=== PATIENT | female | born 1945 | race Caucasian/White ===

== ENCOUNTER 2024-02-14 15:30 | Inpatient (IN) | payer OTHER, SELFPAY ==
[2024-02-14] VITALS (27 sets, daily range): BP systolic 104–184; BP diastolic 62–92; BMI 38.0; BMI 38.3
--- NOTE | 2024-02-14 00:28 | ED.GENMED ---
History of Present Illness
General
Chief Complaint: Chest Pain
Source: patient
Exam Limitations: none
Time Seen by Provider: 02/14/24 00:19
History of Present Illness
History of Present Illness:
See MDM
Past History
Past History
ED Past Medical History: CAD, CVA (Only Left thumb residual), HTN, Hypercholesterolemia, NC and Other (Fibroid, Crohn's)
ED Past Surgical History: Cardiac (Stent, Angioplasty)
Social History
Tobacco: Former smoker
Alcohol: None
Personal:
Living: with family
Employment: Employed (Part-time employed)
Family History
Family History: Other (Noncontributory)
Phy Exam
Physical Exam
Physical Exam:
See MDM
Scores
Heart Score for Chest Pain Patients
STEMI patient?: No
History: Moderately Suspicious
ECG: Nonspecific Repolarization
Age: >/= 65 years
Risk Factors: >/= 3 Risk Factors or History of CAD
Troponin: >1 - <3 x Normal Limit
Heart Score for Chest Pain Patients: 7
Heart Score Risk: 72.7 % MACE over next 6 weeks
Course
Orders/Labs/Results
Orders:
Orders
02/14/24 00:19
Electrocardiogram (*1) Urgent
Reason for Study: Chest Pain
02/14/24 00:20
EKG- Treatment ONCE
02/14/24 00:25
Lorazepam [Ativan] 0.5 mg PO NOW STA
CR Chest - 2 Views Urgent
Comment:
Reason For Exam: chest pain
02/14/24 00:48
Complete Blood Count/With Diff Urgent
Comprehensive Metabolic Panel Urgent
Troponin I Urgent
02/14/24 03:30
Troponin I Urgent
Abnormal Lab Results
02/14/24
00:48
Glucose 131 H mg/dl
(70-99)
Calcium 11.0 H mg/dl
(8.4-10.2)
Troponin I 0.036 H* ng/ml
02/14/24 00:48
02/14/24 00:48
Vital Signs
Initial and Last Documented VS:
Initial Vital Signs
Temp Pulse Resp BP Pulse Ox
97.8 F 65 22 173/76 97
02/14/24 00:21 02/14/24 00:21 02/14/24 00:21 02/14/24 00:21 02/14/24 00:21
Last Documented Vital Signs
Temp Pulse Resp BP Pulse Ox
97.8 F 63 23 184/81 97
02/14/24 00:21 02/14/24 01:00 02/14/24 00:30 02/14/24 01:00 02/14/24 00:45
MDM/Problems Addressed
Differential Diagnosis Includes:
HPI and MDM Narrative:
78-year-old female presenting for evaluation of chest pain. Patient was woken up by police to inform her that her son in [place] is . Patient developed chest pain immediately afterwards. EMS arrived and provided aspirin. Patient is visibly
upset on arrival
Given her prior history, will obtain EKG, troponin and chest x-ray. Symptoms are likely not ACS given the sudden onset of symptoms after bad news
Physical exam
General: non-toxic
HEENT: protecting airway
Neck: appears supple
CV: No evidence of cyanosis. Regular rate and rhythm
Resp: No accessory muscle use
Abd: Non-distended
Extremities: No deformities
Neuro: alert
Psych: Normal affect
Skin: Intact
Problems Addressed including Acute and Chronic Conditions affecting care:
1. Chest pain
Acuity: acute
Prognosis: stable
Details: Likely emotional response. However, will obtain EKG and troponin
Updates
Trope is mildly elevated. Patient still has mild intermittent discomfort but is refusing nitroglycerin based on prior adverse reactions. Given her history of coronary artery disease with an elevated troponin, will admit
Differential Diagnosis (but not limited to): ACS, noncardiac chest pain, anxiety
Testing considered: 2 troponin rule out
Drug therapy (if applicable): OTC meds, please see d/c instruction regarding Rx drugs
Amount and/or Complexity of Data Reviewed
Clinical info obtained from: Patient
External data reviewed: N/A
Labs I independently reviewed (but not limited to): Elevated troponin
Radiology: X-ray independently reviewed: Chest x-ray without acute disease
Pulse Ox: not hypoxic
EKG independently reviewed: Sinus rhythm, normal axis, no STEMI
Strip Stamp Straightener: Sinus rhythm
Critical Care: N/A
Risk of Complication:
Social Determinants of health: Good social support
Discussed with other providers: Hospitalist
Escalation of Care includes Admit/Obs: Given history of coronary disease with elevated troponin, will admit
Occasional wrong word or 'sound a like' substitutions may have occurred due to the inherent limitations of voice recognition software. Read the chart carefully and recognize, using context, where substitutions have occurred.
*Critical Care Note
Total Time (30-74mins, 75-104mins- exclusive of procedures): Not Applicable
ED Attending Note
-
Portions of this chart may have been created with voice recognition software.� Occasional wrong word or��sound alike� substitutions may have occurred due to the inherent limitations of voice recognition software.
Discharge Plan
Departure
Patient Disposition: Admit
Date of Disposition: 02/14/24
Time of Disposition: 02:04
Admit to: Telemetry
Presentation/result/management discussed w/ accepting MD/DO: Hospitalist
Discharge Problem:
Chest pain
Prescriptions:
No Action
noyrjgrk-sak-MU-lycopen-lutein [Centrum Silver] 1 EACH tablet
1 ea PO DAILY
metoprolol tartrate 25 MG tablet
25 mg PO BID Qty: 60 0RF
aspirin 81 MG tablet,delayed release (DR/EC)
81 mg PO DAILYPRN PRN (Reason: when pt remembers)
atorvastatin 40 MG tablet
40 mg PO QPM
acetaminophen [Tylenol Extra Strength] 500 MG tablet
1,000 mg PO Q6HPRN PRN (Reason: mild pain)
ranitidine HCl 75 MG tablet
75 mg PO DAILYPRN PRN (Reason: heartburn)
cholecalciferol (vitamin D3) 1,000 UNITS tablet
1,000 units PO DAILYPRN PRN (Reason: when pt remembers)
ustekinumab [Stelara] 90 MG/ML syringe
90 mg SQ Q2M
lisinopril 20 MG tablet
20 mg PO BID Qty: 60 0RF
ascorbic acid (vitamin C) [Vitamin C] 500 MG tablet
1,000 mg PO BID Qty: 56 0RF
Rx Instructions:
Take 1,000 mg twice a day for 14 days
albuterol sulfate 1 PUFF HFA aerosol inhaler
2 puff inhalation R Q4HPRN PRN (Reason: shortness of breath) Qty: 1 0RF
zinc sulfate 220 MG capsule
220 mg PO DAILY Qty: 14 0RF
Rx Instructions:
Take 220 mg daily for 14 days
cholecalciferol (vitamin D3) 1,000 UNITS tablet
2,000 units PO DAILY Qty: 28 0RF
Rx Instructions:
Take 2,000 units daily for 14 days
Referrals:
Corey Atkinson MD [Family Provider] -
Interventions
Interventions:
*Risk Screen - Suicide Last Done: 02/14/24 00:21
*General Assessment Last Done: 02/14/24 00:21
*Neglect/Abuse Screening Last Done: 02/14/24 00:21
ED- Fall Risk Assessment Last Done: 02/14/24 00:45
*ED COVID-19 Vaccine History Last Done: 02/14/24 00:30
ED- Cardiac Assessment Last Done: 02/14/24 00:32
Discharge Date and Time
Print Language: GREEK
[2024-02-14] MEDS: ATIVAN 0.5 MG PO (00:38)
[2024-02-14 00:59] LABS: % Basophils 0.9 % (0-2); % Eosinophils 3.6 % (0-6); % Immature Granulocytes 0.3 % (0-0.5); % Monocytes 8.5 % (1.7-9.3); % Neutrophils 55.7 % (42.2-75.2); Absolute Basophils 0.1 10^3/uL (0-0.2); Absolute Eosinophils 0.3 10^3/uL (0-0.7); Absolute Lymphocytes 2.3 10^3/uL (1.2-3.4); Absolute Monocytes 0.6 10^3/uL (0.1-0.6); Absolute Neutrophils 4.2 10^3/uL (1.4-6.5); Hematocrit 39.4 % (37.0-47.0); Hemoglobin 13.4 g/dL (12.0-16.0); Mean Corpuscular Volume 91.2 fL (81.0-99.0); Mean Platelet Volume 10.1 fL (7.4-10.4); Nucleated Red Blood Cells % 0 %; Platelet Count 272 10^3/uL (130-400); Red Blood Cell Count 4.32 10^6/uL (4.20-5.40); Red Cell Dist. Width 13.4 % (11.5-14.5); White Blood Cell Count 7.6 10^3/uL (4.8-10.8)
[2024-02-14 01:21] LABS: ALT (SGPT) 23 U/L (0-35); AST (SGOT) 23 U/L (14-36); Albumin 4.1 g/dl (3.5-5.0); Alkaline Phosphatase 111 U/L (38-126); Blood Urea Nitrogen 11 mg/dl (7-17); Carbon Dioxide 26 mmol/L (22-30); Chloride 103 mmol/L (98-107); Estimated Creatinine Clearance 76 ml/min; Glucose 131 mg/dl (70-99); Potassium 4.2 mmol/L (3.5-5.1); Sodium 137 mmol/L (135-145); Total Bilirubin 0.9 mg/dl (0.2-1.3); Total Protein 7.1 g/dl (6.3-8.2); eGFR > 60.00
[2024-02-14 01:42] LABS: Troponin I 0.036 ng/ml
--- NOTE | 2024-02-14 02:47 | HPS.HSE ---
Family Physician
-
Family Physician: Corey Atkinson
Chief Complaint
-
chest pain
History of Present Illness
Ms. nAy Narvaez is a 78 yo woman with hx CAD s/p PCI 2002, 2005; hx CVA, Crohn's disease, HLD presents to the ER with chest pain. The chest pain developed when she learned from police that her son had .
Patient describes pain as burning in chest that comes and goes in intensity. Pain started when police came to her house around 11PM. It is not reproducible. When asked if similar to pain she experienced prior to PCI she said 'I've never
experienced pain like this.' Did not say it was exacerbated when she went to get her CXR, otherwise hasn't done much walking since pain started. No nausea/vomiting.
No recent fevers/chills. No abdominal pain. No LE swelling. Pain not associated with shortness of breath.
Patient received aspirin from EMS.
Her oldest son in a car crash in 2019; in 2020. Her youngest son lives next door to her.
Medical History
Past Medical History
Past Medical History: Reports Other (CAD s/p PCI 2002, 2005; hx CVA, Crohn's disease, HLD)
Past Surgical History: Reports Other
Social History
Tobacco: Former Smoker
Family History
Family History: Not pertinent
Allergies / Home Medications
Allergies reflects when Allergies were last updated in [facility].
Home Medications with original date entered in [facility]
Allergy/Medication List:
Allergies
Allergy/AdvReac Type Severity Reaction Status Date / Time
levofloxacin Allergy muscle Verified 10/08/21 10:57
cramps
prednisone Allergy Rash Verified 10/08/21 10:57
shellfish derived Allergy severe Verified 10/08/21 10:57
vomiting
Home Medications
lttndhwn-ufq-loupk acid 0.4 mg-lycopene 300 mcg-lutein 250 mcg tablet (Centrum Silver) 1 ea PO DAILY 09/11/15
metoprolol tartrate 25 mg tablet 25 mg PO BID ##60 06/28/15
aspirin 81 mg tablet,delayed release 81 mg PO DAILYPRN PRN when pt remembers 05/08/17
acetaminophen 500 mg tablet (Tylenol Extra Strength) 1,000 mg PO Q6HPRN PRN mild pain 12/06/18
atorvastatin 40 mg tablet 40 mg PO QPM 12/06/18
ranitidine HCl 75 mg tablet 75 mg PO DAILYPRN PRN heartburn 12/06/18
ustekinumab 90 mg/mL subcutaneous syringe (Stelara) 90 mg SQ Q1M 12/06/18
lisinopril 20 mg tablet 20 mg PO BID ##60 12/10/18
amlodipine 2.5 mg tablet 2.5 mg PO DAILY 02/14/24
Review of Systems
-
History Source: Patient
A 12 point ROS was completed and negative except as noted: Yes
Physical Exam
Vital Signs
Vital Signs
Temp Pulse Resp BP Pulse Ox
97.8 F 65 16 162/92 93
02/14/24 00:21 02/14/24 02:30 02/14/24 02:30 02/14/24 02:11 02/14/24 02:11
Physical Exam
General: No Apparent Distress and Conversant
HEENT: PERRLA
Respiratory: Clear; No Wheezes
Cardiac: S1/S2 and Regular Rhythm
GI: Soft and Non Tender
Musculoskeletal: No Edema
Skin: Warm and Dry; No Rash
Neuro: AO x 3
Psych: Calm
Laboratory Results
-
02/14/24 00:48
02/14/24 00:48
Laboratory Results
Total Bilirubin 0.9 mg/dl (0.2-1.3) 02/14/24 00:48
AST 23 U/L (14-36) 02/14/24 00:48
ALT 23 U/L (0-35) 02/14/24 00:48
Alkaline Phosphatase 111 U/L (38-126) 02/14/24 00:48
Troponin I 0.036 ng/ml H* 02/14/24 00:48
Data Reviewed
-
Diagnostic Radiology: Report Reviewed by me
Lab Data: Labs Reviewed by me
Impression/Plan
-
Ms. Any Narvaez is a 78 yo woman with hx CAD s/p PCI 2002, 2005; hx CVA, Crohn's disease, HLD presents to the ER with chest pain. The chest pain developed when she learned from police that her son had .
Triage VS: T 97.8, P 65, RR 22, BP 173/76, SpO2 97%
LABS: WBC 7.6, Hg 13.4, PLT 272, Na 137, K+ 4.2, Cl 103, CO2 26, BUN 11, Cr 0.7, glucose 131, Ca 11, T. Bili 0.9, AST 23, ALT 23, Trop 0.036
EKG: NSR @ 63, no ST/ T wave changes
Chest pain
Hx CAD, PCI 2002 and 2005
-pain may be related to grief/ Takotsubo? Troponin at this point only mildly elevated. per ER discussion, patient didn't feel comfortable going home with this pain.
-admit to tele, observation
-continue to trend Troponins
-continue RN OTOLARYNGOLOGY asa/atorvastatin/metoprolol/lisinopril
-cardiology consult, stress test?
-NPO until evaluated by cardiology
Mildly elevated Ca
-1L IVF overnight
Hx CVA
-RN OTOLARYNGOLOGY asa, statin
HLD
-RN OTOLARYNGOLOGY statin
HTN
-RN OTOLARYNGOLOGY regimen: metoprolol, lisinopril, amlodipine
Grief
-patient was notified prior to admit that son committed suicide. She appears flat/ numb during my interview. She mentions that later she may feel ready to talk to a grief counselor.
DVT PPx lovenox subQ
FULL CODE
[2024-02-14 04:08] LABS: Troponin I 0.501 ng/ml
[2024-02-14] MEDS: NSS 1000 IV (04:30)
[2024-02-14 08:13] LABS: Hematocrit 39.5 % (37.0-47.0); Hemoglobin 13.2 g/dL (12.0-16.0); Mean Corp Hgb Conc. 33.4 g/dL (33.0-37.0); Mean Corpuscular Hgb 30.8 pg (27.0-31.0); Mean Corpuscular Volume 92.3 fL (81.0-99.0); Mean Platelet Volume 11.1 fL (7.4-10.4); Platelet Count 238 10^3/uL (130-400); Red Blood Cell Count 4.28 10^6/uL (4.20-5.40); Red Cell Dist. Width 13.4 % (11.5-14.5); White Blood Cell Count 7.5 10^3/uL (4.8-10.8)
[2024-02-14] MEDS: ZESTRIL 20 MG PO ×2 (08:40→20:43)
[2024-02-14] MEDS: ASPIR LOW (ENTERIC COATED) 81 MG PO (08:40)
[2024-02-14] MEDS: NORVASC 2.5 MG PO (08:41)
[2024-02-14] MEDS: LOPRESSOR 25 MG PO ×2 (08:41→19:49)
[2024-02-14 08:49] LABS: Troponin I 0.859 ng/ml
[2024-02-14] MEDS: PEPCID 20 MG PO (08:52)
--- NOTE | 2024-02-14 09:17 | CON.CAR ---
Addendum entered and electronically signed by Clementine Watson MD 02/14/24 17:31:
I saw and examined the patient.
The Club Director's note was reviewed and I agree with the note.
Comment: Ms Narvaez is a 78-year-old female with past medical history of hypertension, hyperlipidemia, moderate restrictive lung disease, type 2 diabetes mellitus, diet controlled, history of hepatic steatosis, Crohn's disease, prior stroke in 2002,
former tobacco abuse, coronary artery disease status post RCA PCI in 2002 and PTCA of ostial RPDA in 2005 who presents this admission with acute episode of substernal chest discomfort found to have an NSTEMI. Patient unfortunately recently passed
out that one of her sons who lived in [place] had .
Vital signs and lab work reviewed. Troponins are slowly uptrending at 0.859. ECG with sinus rhythm and nonspecific ST-T wave changes without acute ischemic changes.
On exam patient has a flat affect, in no acute distress, normal S1 and S2, no murmurs, rubs or gallops, lungs are clear to auscultation bilaterally, elevated JVD, abdomen is obese but otherwise soft, nontender nondistended, warm extremities without
significant edema.
Recommendations:
1. Plan for medical management of NSTEMI with daily baby aspirin, high intensity statin, IV heparin drip, beta-more as tolerated.
2. Full echocardiogram to assess biventricular function.
3. Trend troponins and EKGs while monitoring on telemetry.
4. Referral for coronary angiogram to rule out obstructive CAD.
Clementine Watson MD, [facility], [facility]
Original Note:
Consultation
Consultation Request
Date/Time Consultation Performed: 02/14/24
Requesting Provider: Dr. Mcfarland
Performing Provider: Dia Walker PA-C for Dr. Watson
Reason for Consultation: CP
Medical History
-
Chief Complaint: CP
History of Present Illness:
Patient is a 78-year-old female with past medical history of CAD status post RCA PCI in 2002, PTCA of ostial RPDA in 2005, history of stroke, Crohn's disease, hypertension, hyperlipidemia, moderate restrictive lung disease by prior PFT. She
presents to [facility] overnight due to development of chest pain. She states one of her sons in a car accident in 2019, her in 2020. Last evening she was told by police that her son who lives in [place]
had . She lives next door to her 3rd son. Shortly thereafter she developed central chest tightness and pressure with radiation to her jaw and associated nausea. She states in the setting of her prior stenting, she had symptoms of
dyspnea on exertion, not chest pain. She reports no recent limitations in her activity that she noticed. She reports the chest discomfort still comes and goes. She was given something for anxiety in the ER, however this did not help the chest
discomfort. EKG sinus rhythm with nonspecific ST abnormality. Troponin uptrending, 0.859 is most recent. Cardiology consulted for evaluation
PMH:
CAD status post RCA PCI 2002, PTCA of ostial RPDA in 2005
History of stroke in 2002
Crohn's disease
Hypertension
Hyperlipidemia
Moderate restrictive lung disease
Diabetes type 2, diet controlled
History of fatty liver
Former smoker
Past Medical History
Past Medical History: Other (in HPI)
Social History
Tobacco: Former Smoker
Alcohol: None
Personal:
Living: Alone (son next door)
Employment: Retired
Family History
Family History: CAD
Allergies / Home Medications
Allergy/AdvReac Type Severity Reaction Status Date / Time
levofloxacin Allergy muscle Verified 10/08/21 10:57
cramps
prednisone Allergy Rash Verified 10/08/21 10:57
shellfish derived Allergy severe Verified 10/08/21 10:57
vomiting
�Medication �Instructions �Recorded �Confirmed �Type
xoemaekd-fgi-bkvsh acid 0.4 1 ea PO DAILY Supplement 06/26/15 02/14/24 History
mg-lycopene 300 mcg-lutein 250 mcg
tablet (Centrum Silver)
metoprolol tartrate 25 mg tablet 25 mg PO BID ##60 06/28/15 02/14/24 Rx
aspirin 81 mg tablet,delayed 81 mg PO DAILYPRN PRN when pt 05/08/17 02/14/24 History
release remembers
acetaminophen 500 mg tablet 1,000 mg PO Q6HPRN PRN mild pain 12/06/18 02/14/24 History
(Tylenol Extra Strength)
atorvastatin 40 mg tablet 40 mg PO QPM High Cholesterol 12/06/18 02/14/24 History
ranitidine HCl 75 mg tablet 75 mg PO DAILYPRN PRN heartburn 12/06/18 02/14/24 History
ustekinumab 90 mg/mL subcutaneous 90 mg SQ Q1M crohn's disease 12/06/18 02/14/24 History
syringe (Stelara)
lisinopril 20 mg tablet 20 mg PO BID ##60 12/10/18 02/14/24 Rx
amlodipine 2.5 mg tablet 2.5 mg PO DAILY Blood Pressure 02/14/24 02/14/24 History
Review of Systems
-
History Source: Patient
All other systems: Negative unless noted
Physical Exam
Vital Signs
Temp Pulse Resp BP Pulse Ox
97.6 F 65 16 141/68 95
02/14/24 07:00 02/14/24 08:41 02/14/24 07:00 02/14/24 08:41 02/14/24 07:00
Lab Results
02/14/24 07:28
Troponin I 0.859 ng/ml H* D 02/14/24 07:28
Physical Exam
General: No Apparent Distress, Comfortable and Other (flat affect. obese)
HEENT: Normocephalic, Anicteric and Moist Mucous Membranes
Respiratory: Clear and Non Labored Respirations
Cardiac: S1/S2 and Regular Rhythm
GI: Soft, Non Tender, Non Distended and Normal Bowel Sounds
Musculoskeletal: No Clubbing, No Cyanosis and Edema (trace of B/L LE)
Skin: Warm and Dry
Neuro: AO x 3
Impression / Plan
-
Primary Cupola Man: Dr. Rodriguez
Assessment:
Presentation with CP
NSTEMI, peak trop thus far 0.8
CAD status post RCA PCI 2002, PTCA of ostial RPDA in 2005
History of stroke in 2002
Crohn's disease
Hypertension
Hyperlipidemia
Moderate restrictive lung disease
Diabetes type 2, diet controlled
History of fatty liver
Former smoker
ECHO 12/06/2018: EF 50 to 55%, mild concentric LVH, mild AR
Lexiscan nuclear stress test 09/06/2022: Small area of decreased perfusion that is fixed in basal inferolateral, basal inferior, mid inferolateral, mid inferior segments consistent with soft tissue attenuation, EF 63%, no significant change compared
to 2020
Plan:
-Patient presents with development of chest pain in the setting of learning her son had last evening. history of prior RCA PCI and PTCA of RPDA
-she has ruled in for NSTEMI with troponin up to 0.8
-EKG sinus rhythm with nonspecific ST abnormalities
-CXR without acute process noted
-Last echo and stress test with results as above
-Continue outpatient aspirin, statin, amlodipine, Lopressor, lisinopril
-N.p.o. for cardiac catheterization today
-Check echo
-I expressed my condolences for the loss of her son
Data Reviewed
-
EKG: Tracing Personally Visualized and interpreted
Radiology: Report Reviewed by me
Medical Tests (Nuc Med, Echo etc): Report Reviewed by me
Labs: Labs Reviewed by me
Old Records: Reviewed
[2024-02-14 10:01] LABS: Blood Urea Nitrogen 10 mg/dl (7-17); Calcium 10.1 mg/dl (8.4-10.2); Carbon Dioxide 24 mmol/L (22-30); Chloride 106 mmol/L (98-107); Estimated Creatinine Clearance 86 ml/min; Glucose 110 mg/dl (70-99); Magnesium 1.9 mg/dl (1.6-2.3); Potassium 4.6 mmol/L (3.5-5.1); Sodium 137 mmol/L (135-145); eGFR > 60.00
--- NOTE | 2024-02-14 10:30 | PTCARENOTE ---
Patient to lab technician for cardiac catheterization, report given to lab technician RN.
--- NOTE | 2024-02-14 10:45 | CM ---
Attempted to complete initial assessment. Patient in manager labor delivery. Will attempt later. Needs AMBROSE signed.
[2024-02-14 11:19] LABS: ACT-LR - POC 302 Seconds (116-155)
--- NOTE | 2024-02-14 12:55 | ITS.CL.CATH ---
[employer] - Catheterization
Cardiac Catheterization
Procedure Report:
LEFT HEART CATHETERIZATION AND CORONARY INTERVENTION
Date of Procedure: February 14, 2024
Referring: Louie Rodriguez
PROCEDURES:
1. Left heart catheterization, coronary angiogram.
2. Ultrasound-guided access.
3. Left ventriculography.
4. Successful percutaneous coronary artery intervention of a 80% proximal OM1 stenosis with a 2.5 x 15 mm Xience abhi point drug-eluting stent, successfully postdilated using a 2.5 x 12 mm NC trek balloon at 18 milo with an excellent angiographic
result.
INDICATION: Ms Narvaez is a 78-year-old female with past medical history of hypertension, hyperlipidemia, moderate restrictive lung disease, type 2 diabetes mellitus, diet controlled, history of hepatic steatosis, Crohn's disease, prior stroke in
2002, former tobacco abuse, coronary artery disease status post RCA PCI in 2002 and PTCA of ostial RPDA in 2005 who presents this admission with acute episode of substernal chest discomfort found to have an NSTEMI. Patient unfortunately recently
passed out that one of her sons who lived in [place] had . Troponins are slowly uptrending at 0.859. ECG with sinus rhythm and nonspecific ST-T wave changes without acute ischemic changes. She will be referred for a left heart
catheterization to rule out obstructive CAD.
ACCESS: Right radial artery, 6 Hungarian sheath, under ultrasound guidance for
HEMODYNAMICS : (mmHg)
AO (s/d) : 174/84
LV (s/d) : 170/18
LVEDP : 31
CORONARY FINDINGS
DOMINANCE: Right
LEFT MAIN: The left main artery is a large-caliber vessel which gives rise to the left anterior descending artery and the left circumflex artery. There is minimal luminal irregularities.
LEFT ANTERIOR DESCENDING: The left anterior descending artery is a medium to large caliber vessel which gives rise to 2 major diagonal branches. The LAD is mild leak calcified with diffuse mild atherosclerotic plaque. The first diagonal branch has
smooth tubular 40 to 50% stenosis in the proximal portion which appears stable from prior cath in 2002.
CIRCUMFLEX: The left circumflex artery is a small to medium caliber vessel which gives rise to 2 major obtuse marginal branches. OM1 has a focal 80% stenosis in the proximal portion. This was thought to be the culprit of her presenting NSTEMI.
Otherwise there is minimal luminal irregularities.
RIGHT CORONARY ARTERY: The right coronary artery is a large-caliber dominant vessel which gives rise to the right posterior descending artery and the right posterolateral system. Mid RCA stent from before is patent with mild diffuse atherosclerotic
plaque from the proximal to distal RCA. The RPDA is a small caliber vessel with 3 serial 60 to 70% stenosis and JG-3 flow.
VENTRICULOGRAPHY: In the single-plane BOCANEGRA projection, there is hypokinesis noted of the basal inferolateral wall with overall low normal left ventricular ejection fraction. Estimated LVEF is 50 to 55% by visual estimation.
CORONARY INTERVENTION: Decision was made to move forward with intervention of proximal OM1. Additional heparin was given to maintain therapeutic ACT throughout the case. The left coronary artery selectively engaged using a 6 Hungarian EBU 3.5 guide
catheter. A 190 cm 0.014' power turn flex coronary wire was used to navigate across the proximal OM1 stenosis into the distal vessel. The lesion was directly stented using a 2.5 x 15 mm Xience abhi point drug-eluting stent and successfully
postdilated using a 2.5 x 12 mm NC trek at 18 milo with an excellent angiographic result. Patient was loaded with 180 mg of Brilinta at the end of the case. No acute complications.
SEDATION: 58 minutes of procedural sedation was utilized. An independent internist medical doctor md was present to assist with and help manage the patient's level of consciousness and physiologic status.
RADIATION SUMMARY: Fluoro Time (min): 9.5, Dose (mGy): 780.5, DAP (Gy.cm2) : 64.4
Closure Device: Vascular band over right radial artery, 14 cc of air
CONCLUSIONS
1. Successful percutaneous coronary artery intervention of a 80% proximal OM1 stenosis with a 2.5 x 15 mm Xience abhi point drug-eluting stent, successfully postdilated using a 2.5 x 12 mm NC trek balloon at 18 milo with an excellent angiographic
result.
2. The RPDA is a small caliber vessel with 3 serial 60 to 70% stenosis and JG-3 flow.
3. The first diagonal branch has smooth tubular 40 to 50% stenosis in the proximal portion which appears stable from prior cath in 2002.
4. Significantly elevated LVEDP.
5. In the single-plane BOCANEGRA projection, there is hypokinesis noted of the basal inferolateral wall with overall low normal left ventricular ejection fraction. Estimated LVEF is 50 to 55% by visual estimation.
RECOMMENDATIONS
1. In the setting of acute coronary syndrome, uninterrupted dual antiplatelet therapy with daily baby aspirin and 90 mg of Brilinta twice daily along with high intensity statin and beta-more as tolerated. IV diuresis as needed.
2. Full echocardiogram to assess biventricular function and rule out any significant valvular abnormalities.
3. Wean radial band per protocol.
4. Aggressive management of cardiovascular risk factors.
5. Referral for outpatient cardiac rehab.
Copy to: Louie Rodriguez
Clementine Watson MD, FACC, [facility]
--- NOTE | 2024-02-14 13:54 | W.PN.HOSP.TC ---
Today's Communication/Plan
-
Trend troponins
Echocardiogram
Continue current care
Assessment / Plan
Assessment / Plan
Gen-AAOx3, NAD, flat affect
HEENT-NC, AT, anicteric, clear oral mm
Neck-supple
CV-reg, no M, +S1/S2
Lungs-clear B/L
Abd-soft, NT, ND
Ext-no edema
Musculoskeletal-no cyanosis, clubbing
Skin-warm and dry
Neuro-grossly non-focal
Psych-calm, cooperative
NSTEMI -stable after cardiac catheterization and stenting today. Continue aspirin, ticagrelor per cardiology. Diet resumed. Last troponin 0.859, repeat troponin pending.
Echocardiogram pending.
CAD -with prior PCI in 2002, 2005.
History of stroke
Hyperlipidemia -continue atorvastatin.
Essential hypertension -stable. Was on amlodipine, lisinopril, metoprolol prior to admission.
Crohn's disease -stable.
Obesity due to excess calories
Grief -patient currently in state of mental shock, just lost her son to suicide. I offered her counseling and second cutter services. Currently she is declining. Condolences offered.
Full code
Anticipated Discharge: 24 - 48 hours
Subjective/Interval History
-
Date of Service: February 14, 2024
Patient seen and examined. Denies chest pain or shortness of breath currently.
Objective Data
-
Labs:
Laboratory Results
02/14/24 02/14/24
07:28 08:56
WBC 7.5
Hgb 13.2
Hct 39.5
Plt Count 238
Sodium Cancelled 137
Potassium Cancelled 4.6
Chloride Cancelled 106
Carbon Dioxide Cancelled 24
BUN Cancelled 10
Creatinine Cancelled 0.6
Glucose Cancelled 110 H
Calcium Cancelled 10.1
Vital Signs:
Vital Signs
Temp Pulse Resp BP Pulse Ox
97.6 F 55 18 147/91 97
02/14/24 07:00 02/14/24 13:40 02/14/24 13:40 02/14/24 13:40 02/14/24 13:14
Review of Systems
-
History Source: Patient
All other systems: Reviewed and negative
--- NOTE | 2024-02-14 16:30 | CM ---
Chart reviewed. Patient is independent of ADLS, lives alone in a 1 STH, 1 [address], 0 DME. Patient recently lost her son, other son in a car accident 2019, and in 2020. Patient with another son who lives next door. Patient
currently with no discharge needs. Plan is for the patient to return home. CM to follow
--- NOTE | 2024-02-14 16:38 | CM ---
Pricing on Brilinta 90mg BID is covered at the patient's prescription plan $0 copay. I called the patient's [facility] and they do have it in stock.
[2024-02-14] MEDS: LOVENOX 40 MG SC (17:06)
[2024-02-14] MEDS: LIPITOR 40 MG PO (17:07)
[2024-02-14] MEDS: TYLENOL 650 MG PO (19:48)
[2024-02-14] MEDS: BRILINTA 90 MG PO (19:49)
[2024-02-14] MEDS: ZOFRAN 4 MG IV (21:21)
[2024-02-14] MEDS: ROXICODONE 5 MG PO (21:21)
[2024-02-14 21:47] LABS: Magnesium 1.7 mg/dl (1.6-2.3); Potassium 4.2 mmol/L (3.5-5.1)
[2024-02-14] MEDS: TUMS EX (EXTRA STRENGTH) CHEWABLE 2 TABLET PO (21:57)
--- NOTE | 2024-02-14 23:05 | W.PN.UPDATE ---
Update Note
Progress Note Update
-@ approx 9:15 pm pt mentioned 5/10 jaw, neck pain and chest burning, which are similar to her admission symptoms, but not as severe. CP appears better when lying on her L side, worse lying on her back and no relief with sitting up. ECG reviewed:
nsr 62 bpm with non-specific STTW abnorm. ECG prior to cath was with NSSTW abnorm as well. BP 137/71, pOx 92 on 2 L. Pt got Metoprolol, Lisinopril and Lipitor earlier. Cath reviewed - s/p OM1 stent.
-checked trop - trending up 2.34 - will check trop and ECG in am.
-Started 2L O2, gave Roxicodone, and Tums (pt has hx GERD and Chron's)- pt stated feeling better overall. Held off on Morphine since pt was nauseated earlier and required Zofran.
-reviewed with Dr. Rodriguez. Will continue to monitor closely.
--- NOTE | 2024-02-14 23:33 | PTCARENOTE ---
Pt received at start of shift, HR SR/SB 50s-70s. R radial site slight ooze under tegaderm, tegaderm taken off, site cleaned, new sterile gauze and tegaderm placed over site. CDI. Pt denies any SOB, lightheadedness, or dizziness.
Pt c/o pain at 7/10 at L upper chest, sternum, and into L neck/jaw (same pain locations as prior to cath). Pt states it is positional, as it feels worse when lying flat on her back. Tylenol administered, ineffective, pt c/o pain 9/10 when side lying
and '12/10' when lying on back. Pt also reports nausea. EKG completed, CVPA Rebecca notified. Lashay 5mg and Zofran ordered and administered. 2L O2 placed on pt. Pt now states pain is L upper chest to sternum, neck, and R side jaw at 5/10 pain. Pt
reports pain feels like burning+pressure in middle of chest. Tums ordered and administered. Upon reassessment, pt states pain 0/10. Informed to notify RN if any changes, call ley within reach.
[2024-02-15] VITALS (8 sets, daily range): BP systolic 104–139; BP diastolic 45–73; BMI 37.7
[2024-02-15] MEDS: TYLENOL 650 MG PO (03:33)
[2024-02-15 04:03] LABS: Blood Urea Nitrogen 12 mg/dl (7-17); Calcium 10.4 mg/dl (8.4-10.2); Carbon Dioxide 25 mmol/L (22-30); Chloride 103 mmol/L (98-107); Estimated Creatinine Clearance 64 ml/min; Glucose 107 mg/dl (70-99); Potassium 4.4 mmol/L (3.5-5.1); Sodium 136 mmol/L (135-145); eGFR > 60.00
[2024-02-15] MEDS: ROXICODONE 5 MG PO (04:19)
[2024-02-15] MEDS: TUMS EX (EXTRA STRENGTH) CHEWABLE 1 TABLET PO (04:19)
[2024-02-15] MEDS: ZOFRAN 4 MG IV ×2 (04:25→09:13)
[2024-02-15] MEDS: BRILINTA 90 MG PO ×2 (07:19→20:03)
[2024-02-15] MEDS: ASPIR LOW (ENTERIC COATED) 81 MG PO (07:19)
[2024-02-15] MEDS: LOPRESSOR 25 MG PO ×2 (07:30→20:04)
[2024-02-15] MEDS: NORVASC PO (07:31)
[2024-02-15] MEDS: ZESTRIL PO (07:31)
--- NOTE | 2024-02-15 07:56 | W.PN.HOSP.TC ---
Today's Communication/Plan
-
Trend troponins
Psychiatry consult
Assessment / Plan
Assessment / Plan
Gen-AAOx3, NAD, flat affect
HEENT-NC, AT, anicteric, clear oral mm
Neck-supple
CV-reg, no M, +S1/S2
Lungs-clear B/L
Abd-soft, NT, ND
Ext-no edema
Musculoskeletal-no cyanosis, clubbing
Skin-warm and dry
Neuro-grossly non-focal
Psych-calm, cooperative
NSTEMI -stable after cardiac catheterization and OM1 stenting 02/13. Continue aspirin, ticagrelor per cardiology. Diet resumed. Troponins still trending up, 2.97 earlier this morning. Repeat troponin pending.
Echocardiogram shows LVEF 45 to 50% with hypokinesis of the inferior and basal weston.
CAD -with prior PCI in 2002, 2005.
History of stroke
Hyperlipidemia -continue atorvastatin.
Essential hypertension -relative hypotension noted. Was on amlodipine, lisinopril, metoprolol prior to admission. Amlodipine and lisinopril on hold for hypotension.
Crohn's disease -stable.
Obesity due to excess calories
Grief -patient currently in state of mental shock, just lost her son to suicide. Today she agrees with psychiatry consultation. Order placed. She lost her 3 years ago, her other son 4 years ago. She has 1 son left.
Full code
Anticipated Discharge: 24 - 48 hours
Subjective/Interval History
-
Date of Service: February 15, 2024
Patient seen and examined. Seems brighter today and more engaging in conversation. Events overnight noted. Currently denies chest pain. States that the chest pain is worse when she lies on her back but improved when she is on the left side in a
left lateral decubital position. Worse with sitting up. Denies shortness of breath. Pain is sharp in nature but not pleuritic.
Objective Data
-
Labs:
Laboratory Results
02/14/24 02/15/24
21:20 03:20
Sodium 136
Potassium 4.2 4.4
Chloride 103
Carbon Dioxide 25
BUN 12
Creatinine 0.8
Glucose 107 H
Calcium 10.4 H
Vital Signs:
Vital Signs
Temp Pulse Resp BP Pulse Ox
98.0 F 54 16 104/69 94
02/15/24 06:43 02/15/24 07:31 02/15/24 06:43 02/15/24 07:31 02/15/24 06:43
Review of Systems
-
History Source: Patient
All other systems: Reviewed and negative
--- NOTE | 2024-02-15 07:58 | W.PN.CARDCBS ---
Addendum entered and electronically signed by Clementine Watson MD 02/15/24 16:06:
I saw and examined the patient.
The Automotive Refinisher's note was reviewed and I agree with the note.
Comment: Patient reports of ongoing nausea this morning. Initially overnight she complained of some chest discomfort that was resolved with narcotics. Later in the day she told us that she has been having musculoskeletal/arthritic neck pain which
then usually causes a migraine leading to nausea. Patient is an extremely poor historian with her complaints and history reassuring for anyone who goes in to speak to her including nurse versus PA versus physician
In the setting of her symptoms and with troponin slowly rising to 4, ECGs were rechecked which showed sinus rhythm or sinus bradycardia with no acute ischemic changes. A limited echocardiogram was also repeated which appears stable compared to
yesterday with mildly reduced LV systolic function with EF of about 45% with hypokinesis of the basal inferior, inferoseptum and inferolateral weston without significant valvular abnormalities.
On exam patient appears in no acute distress, awake and oriented x 3, regular rate, normal S1 and S2, lungs are clear to auscultation bilaterally, abdomen is obese but otherwise soft, nontender with active bowel sounds and warm extremities. Right
radial access site with dressing in place which is clean, dry and intact without evidence of hematoma or bruit.
Recommendations:
1. Patient presented with an NSTEMI with troponins still slowly uptrending from unclear cause. ECG is without acute ischemic changes. Echocardiogram appears unchanged. I reviewed her heart catheterization from yesterday again with an excellent
result of OM1 PCI and JG-3 flow. For now no plans to relook with an invasive heart catheterization however we will continue to work on uptitrating goal-directed medical therapy including antianginal medications as hemodynamically will allow.
Given mild LV dysfunction, will have case management social worker look into the cost for possible SGLT2 inhibitors prior to discharge. Dual antiplatelet therapy with daily baby aspirin and ticagrelor along with statin and beta-more.
2. Continue to trend troponins and EKGs for now. Continue to monitor closely on telemetry.
3. Consider psychiatry consultation.
4. Given patient is breathing well on room air without respiratory distress, holding off on any further diuretics for now. Continue with daily upright weights and strict ins and outs for now.
5. Eventual referral for outpatient cardiac rehab when stable from a cardiac standpoint for discharge home.
Clementine Watson MD, [facility], [facility]
Original Note:
Today's Communication / Plan
-
s/p OM1 PCI 02/13
trend trops to peak
follow symptoms
vitals stable
check CBC, repeat trop, blood sugar
continue asa, brilinta, statin, BB
holding on further lasix
consider psych consult
Impression / Plan
-
Primary Tour Director: Dr. Rodriguez
Assessment:
Presentation with CP
NSTEMI, peak trop thus far 2.9
CAD status post RCA PCI 2002, PTCA of ostial RPDA in 2005
History of stroke in 2002
Crohn's disease
Hypertension
Hyperlipidemia
Moderate restrictive lung disease
Diabetes type 2, diet controlled
History of fatty liver
Former smoker
ECHO 12/06/2018: EF 50 to 55%, mild concentric LVH, mild AR
Lexiscan nuclear stress test 09/06/2022: Small area of decreased perfusion that is fixed in basal inferolateral, basal inferior, mid inferolateral, mid inferior segments consistent with soft tissue attenuation, EF 63%, no significant change compared
to 2020
ECHO 02/14/24: EF 45 to 50%, basal septum, basal inferoseptum, basal inferior, basal lateral weston are hypokinetic, mild LVH, mild MR, mild AR
Plan:
-Patient presented with development of chest pain in the setting of learning her son had . history of prior RCA PCI and PTCA of RPDA
-s/p cath 02/13 with OM1 PCI. residual mod CAD in RPDA and first diag branch, plan for medical mgmt
-troponin continues to trend up, 2.9 on 02/14 AM. trend to peak
-events overnight noted. she had recurrence of chest discomfort overnight relieved with roxicodone. EKG SB but no acute ST abnormalities noted
-called back in to see patient ~1 hour after initial due to patient reports of fatigue, nausea, lightheadedness. no CP. BP improved by recheck. remains SR/SB on tele. nursing to draw additional trop, CBC, blood sugar. will monitor.
-could consider for repeat limited echo if symptoms persist
-CXR 02/13 without acute process noted
-continue asa, brilinta
-continue statin. CVE pending
-LVEDP by cath was 31. she received dose of IV lasix x1 02/13. would hold off on additional lasix for now in setting of relative hypotension
-continue lopressor. in SR/SB by review of tele. holding lisinopril and norvasc this AM due to hypotension
-echo 02/13 with EF 45-50%. reviewed results with patient today. would consider transitioning lopressor to toprol in setting of mild EF reduction
-one of her 3 sons in 2019, in 2020 of covid. additional son this week. consider psych consult if patient agreeable
-cardiac rehab
-d/w nursing, hospitalist
Progress Note - Tour Director
Subjective
Date of Service: February 15, 2024
reported some chest discomfort overnight relieved by gonsalo. now with complaints of nausea, fatigue, lightheadedness.
Objective
Labs:
02/14/24 07:28
02/15/24 03:20
Labs
Hgb 13.2 g/dL (12.0-16.0) 02/14/24 07:28
Hct 39.5 % (37.0-47.0) 02/14/24 07:28
Plt Count 238 10^3/uL (130-400) 02/14/24 07:28
Sodium 136 mmol/L (135-145) 02/15/24 03:20
Potassium 4.4 mmol/L (3.5-5.1) 02/15/24 03:20
BUN 12 mg/dl (7-17) 02/15/24 03:20
Creatinine 0.8 mg/dL (0.6-1.0) 02/15/24 03:20
Glucose 107 mg/dl (70-99) H 02/15/24 03:20
Troponins
02/14/24 02/14/24 02/14/24
00:48 03:30 07:28
Troponin I 0.036 H* 0.501 H* D 0.859 H* D
02/14/24 02/14/24 02/15/24
14:00 21:20 03:20
Troponin I Cancelled 2.340 H* 2.970 H* D
Vital Signs and I&O:
Vital Signs
Temp Pulse Resp BP Pulse Ox
98.0 F 54 16 104/69 94
02/15/24 06:43 02/15/24 07:31 02/15/24 06:43 02/15/24 07:31 02/15/24 06:43
Vital Signs
Temp Pulse Resp BP Pulse Ox
98.0 F 54 16 104/69 94
02/15/24 06:43 02/15/24 07:31 02/15/24 06:43 02/15/24 07:31 02/15/24 06:43
Physical Exam
Physical Exam
GEN: No distress, awake, alert, oriented x3. flat affect
HEENT: supple, anicteric, mmm, eomi
LUNGS: CTA B/L, no wheezes/rales
CV: Reg, S1/S2, no murmur
ABD: soft, BS+, NT/ND
EXT: No cyanosis, clubbing, edema
NEURO: Gross non-focal
SKIN: Warm, pink, dry. No rash. R wrist site c/d/i.
[2024-02-15 08:59] LABS: Glucose - Point of Care 136 mg/dl (70-99)
[2024-02-15 09:38] LABS: HDL Cholesterol 62 mg/dl; LDL Cholesterol, Calculated 61 mg/dl; Total Cholesterol 158 mg/dl (50-199); Triglyceride 175 mg/dl (10-149); Very Low Density Lipoprotein 35 mg/dl (0-30)
[2024-02-15 10:32] LABS: Hematocrit 38.2 % (37.0-47.0); Hemoglobin 12.6 g/dL (12.0-16.0); Mean Corpuscular Hgb 31.3 pg (27.0-31.0); Mean Platelet Volume 10.5 fL (7.4-10.4); Platelet Count 232 10^3/uL (130-400); Red Blood Cell Count 4.02 10^6/uL (4.20-5.40); Red Cell Dist. Width 13.4 % (11.5-14.5); White Blood Cell Count 6.9 10^3/uL (4.8-10.8)
--- NOTE | 2024-02-15 10:45 | CON.MD ---
Consultation - Medical
-
patient seen chart reviewed. spoke with nursing., the patient is a 78 year old woman who has lost two sons once very recently and right before this admit to suicide. her other son in 2020 and her of over fifty years in 2019. she is
reeling from the losses. she does have another son who lives next door and is very supportive of her but her grief is overwhelming. she was admitted for chest pain and has had a stent placed. she has no prior hx of depression. she has never been rx
for depression or anxiety sleep prior to recent events was adequate as was appetite. she could enjoy some things. energy level not really great in general. she is NOT suicidal. there is nothing to suggest psychosis
past psych hx none
medical hx cad stent placement hx cva w minimal residua htn hld mi fibroids crohn's ecg w bradycardia hx respiratory issues gerd hx sinusitis obesity
fh son suicided
substance abuse denied
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 had three sons one remaining lives nearby few friends. some supportive ext family
mse alert ox3 in distress. c/o nausea speech and thought process nl no psychosis mood is depressed affect appropriate. denies si aver intelligence insight judgment ok
dx bereavement unspecified depression
plan at present would not rx with antidepressants which would not be likely to help with acute grief of this nature. can use ativan or xanax to aid w sleep as needed. will return in the am and offer her the opportunity to express what she is
feeling. consider pastoral care consult. will follow
--- NOTE | 2024-02-15 11:26 | CM ---
Chart reviewed. Patient is independent of ADLS, lives alone in a 1 STH, 1 [address], 0 DME. Plan is for the patient to return home. CM to follow
[2024-02-15] MEDS: BenGay-Like 1 APPLIC TOPICAL ×2 (16:04→22:32)
[2024-02-15] MEDS: LIPITOR 40 MG PO (16:43)
[2024-02-15] MEDS: LOVENOX 40 MG SC (16:43)
[2024-02-15] MEDS: ZESTRIL 20 MG PO (20:03)
--- NOTE | 2024-02-16 01:26 | PTCARENOTE ---
Pt received at start of shift, HR SR/SB. R radial cath site dressing CDI, area soft, non-tender. After educating pt on activity restrictions related to cath and stent, pt states they doubt they will continue to follow them once discharged -
specifically the ones related to R arm. Emphasized importance of continuing to follow restrictions post-discharge. Pt denies any CP, jaw pain, neck pain, nausea, SOB, or lightheadedness/dizziness. Informed to notify RN if any changes, call ley
within reach.
[2024-02-16 03:34] VITALS: BP 109/56
[2024-02-16 03:43] VITALS: BMI 37.7
[2024-02-16] MEDS: BRILINTA 90 MG PO (07:57)
[2024-02-16] MEDS: ASPIR LOW (ENTERIC COATED) 81 MG PO (07:57)
[2024-02-16] MEDS: ZESTRIL 20 MG PO (07:57)
[2024-02-16] MEDS: NORVASC 2.5 MG PO (07:57)
[2024-02-16] MEDS: LOPRESSOR 25 MG PO (07:57)
[2024-02-16 07:58] VITALS: BP 140/76
[2024-02-16] MEDS: BenGay-Like 1 APPLIC TOPICAL (07:58)
--- NOTE | 2024-02-16 09:40 | W.PN.CARDCBS ---
Addendum entered and electronically signed by Clementine Watson MD 02/16/24 13:01:
I saw and examined the patient.
The Rounding Machine Tender's note was reviewed and I agree with the note.
Comment: Patient reports feeling significantly better today. Troponin peaked at 4.9 and downtrending. ECG without any acute ischemic changes. Telemetry has been stable. She denies any recurrent chest discomfort or nausea. She has been
ambulating in her room without any difficulty. No shortness of breath. No issues at the right radial site.
A limited echocardiogram was also repeated which appears stable compared to yesterday with mildly reduced LV systolic function with EF of about 45% with hypokinesis of the basal inferior, inferoseptum and inferolateral weston without significant
valvular abnormalities.
On exam patient appears in no acute distress, awake and oriented x 3, regular rate, normal S1 and S2, lungs are clear to auscultation bilaterally, abdomen is obese but otherwise soft, nontender with active bowel sounds and warm extremities. Right
radial access site with dressing in place which is clean, dry and intact without evidence of hematoma or bruit.
Recommendations:
1. Uninterrupted dual antiplatelet therapy in the setting of ACS with daily baby aspirin and ticagrelor along with statin and beta-more.
2. Goal-directed medical therapy for new ischemic cardiomyopathy. We will change Lopressor to Toprol-XL given new reduction in LVEF and continue lisinopril. We will continue amlodipine as a second antianginal agent.
3. Will look into SGLT2 inhibitor as an outpatient.
4. Okay to travel after 1 week if no issues at the radial access site or any new cardiac symptoms. We will work on setting up cardiology follow-up.
5. Stable for discharge home from a cardiac standpoint. Referral for outpatient cardiac rehab.
Clementine Watson MD, [facility], [facility]
Original Note:
Today's Communication / Plan
-
s/p OM1 PCI
feeling better today
continue asa, brilinta. add PPI
transition lopressor to toprol given EF reduction
continue lisinopril, norvasc, statin
cardiac rehab
ok for DC to home today
to discuss timing of travel to [place] in setting of recent [place]. will arrange OP cardiac follow up
Impression / Plan
-
Primary Sql Ssis Developer: Dr. Rodriguez
Assessment:
Presentation with CP
NSTEMI, peak trop thus far 2.9
CAD status post RCA PCI 2002, PTCA of ostial RPDA in 2005
History of stroke in 2002
Crohn's disease
Hypertension
Hyperlipidemia
Moderate restrictive lung disease
Diabetes type 2, diet controlled
History of fatty liver
Former smoker
FH of CAD
ECHO 12/06/2018: EF 50 to 55%, mild concentric LVH, mild AR
Lexiscan nuclear stress test 09/06/2022: Small area of decreased perfusion that is fixed in basal inferolateral, basal inferior, mid inferolateral, mid inferior segments consistent with soft tissue attenuation, EF 63%, no significant change compared
to 2020
ECHO 02/14/24: EF 45 to 50%, basal septum, basal inferoseptum, basal inferior, basal lateral weston are hypokinetic, mild LVH, mild MR, mild AR
Plan:
-Patient presented with development of chest pain in the setting of learning her son had . history of prior RCA PCI and PTCA of RPDA
-s/p cath 02/13 with OM1 PCI. residual mod CAD in RPDA and first diag branch, plan for medical mgmt. reviewed with patient 02/15
-troponin peaked at 4.9 and down trending
-she is feeling well overnight. no complaints this morning aside from her typical neck pain secondary to OA. she reports she had significant relief yesterday with bengay
-continue asa, brilinta
-she has issues with GERD/acid reflux. will plan to add PPI given DAPT
-continue statin. LDL 61.
-LVEDP by cath was 31. she received dose of IV lasix x1 02/13. would hold off on additional lasix
-BPs improved. remains in SR upon review of tele. will transition from lopressor to toprol in setting of mild EF reduction. continue lisinopril and low dose norvasc
-could consider addition of SGLT2 inhibitor and spironolactone as OP
-one of her 3 sons in 2019, in 2020 of covid. additional son this week. appreciate psych.
-she states she needs to travel to [place] (where her son who lived). will discuss clearance for timing of this with attending and will arrange OP follow up around this
-cardiac rehab
-ok for DC to home today
-d/w nursing
Progress Note - Sql Ssis Developer
Subjective
Date of Service: February 16, 2024
Feeling better today. Denies chest pain or shortness of breath overnight
Objective
Labs:
02/15/24 10:11
02/15/24 03:20
Labs
Hgb 12.6 g/dL (12.0-16.0) 02/15/24 10:11
Hct 38.2 % (37.0-47.0) 02/15/24 10:11
Plt Count 232 10^3/uL (130-400) 02/15/24 10:11
Sodium 136 mmol/L (135-145) 02/15/24 03:20
Potassium 4.4 mmol/L (3.5-5.1) 02/15/24 03:20
BUN 12 mg/dl (7-17) 02/15/24 03:20
Creatinine 0.8 mg/dL (0.6-1.0) 02/15/24 03:20
Glucose 107 mg/dl (70-99) H 02/15/24 03:20
Troponins
02/14/24 02/14/24 02/14/24
00:48 03:30 07:28
Troponin I 0.036 H* 0.501 H* D 0.859 H* D
02/14/24 02/14/24 02/15/24
14:00 21:20 03:20
Troponin I Cancelled 2.340 H* 2.970 H* D
02/15/24 02/15/24 02/15/24
09:05 16:14 21:00
Troponin I 4.930 H* D 3.820 H* Cancelled
02/16/24
03:40
Troponin I 2.350 H*
Vital Signs and I&O:
Vital Signs
Temp Pulse Resp BP Pulse Ox
97.7 F 69 20 140/76 92
02/16/24 08:00 02/16/24 07:57 02/16/24 08:00 02/16/24 07:57 02/16/24 08:00
Vital Signs
Temp Pulse Resp BP Pulse Ox
97.7 F 69 20 140/76 92
02/16/24 08:00 02/16/24 07:57 02/16/24 08:00 02/16/24 07:57 02/16/24 08:00
Intake & Output
02/14/24 02/15/24 02/16/24 02/17/24
07:59 07:59 07:59 07:59
Intake Total 720 / 720
Balance 720 / 720
Physical Exam
Physical Exam
GEN: No distress, awake, alert, oriented x3
HEENT: supple, anicteric, mmm, eomi
LUNGS: CTA B/L, no wheezes/rales
CV: Reg, S1/S2, no murmur
ABD: soft, BS+, NT/ND
EXT: No cyanosis, clubbing, edema
NEURO: Gross non-focal
SKIN: Warm, pink, dry. No rash. R wrist site c/d/i. mild tomas-incisional bruising, soft, NTTP
--- NOTE | 2024-02-16 10:24 | W.PN.HOSP.TC ---
Today's Communication/Plan
-
Discharge
Assessment / Plan
Assessment / Plan
Gen-AAOx3, NAD, flat affect
HEENT-NC, AT, anicteric, clear oral mm
Neck-supple
CV-reg, no M, +S1/S2
Lungs-clear B/L
Abd-soft, NT, ND
Ext-no edema
Musculoskeletal-no cyanosis, clubbing
Skin-warm and dry
Neuro-grossly non-focal
Psych-calm, cooperative
NSTEMI -stable after cardiac catheterization and OM1 stenting 02/13. Continue aspirin, ticagrelor per cardiology. Diet resumed. Troponins finally peaked.
Echocardiogram shows LVEF 45 to 50% with hypokinesis of the inferior and basal weston. No further chest discomfort.
CAD -with prior PCI in 2002, 2005.
History of stroke
Hyperlipidemia -continue atorvastatin.
Essential hypertension -relative hypotension noted. Was on amlodipine, lisinopril, metoprolol prior to admission. Amlodipine and lisinopril on hold for hypotension.
Crohn's disease -stable.
Obesity due to excess calories
Grief -patient currently in state of mental shock, just lost her son to suicide. Today she agrees with psychiatry consultation. Order placed. She lost her 3 years ago, her other son 4 years ago. She has 1 son left.
Full code
Dispo -medically stable for discharge. Cleared by cardiology. Outpatient follow-up.
32 min spent in discharge process.
Anticipated Discharge: Today
Subjective/Interval History
-
Date of Service: February 16, 2024
Patient seen and examined. No further chest pain. No complaints. She is in good spirits today.
Objective Data
-
Vital Signs:
Vital Signs
Temp Pulse Resp BP Pulse Ox
97.7 F 69 20 140/76 92
02/16/24 08:00 02/16/24 07:57 02/16/24 08:00 02/16/24 07:57 02/16/24 08:00
I&O
02/15/24 02/16/24 02/17/24
06:59 06:59 06:59
Intake Total 720 / 720
Balance 720 / 720
Review of Systems
-
History Source: Patient
All other systems: Reviewed and negative
--- NOTE | 2024-02-16 10:29 | W.DS.TRANS ---
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
-
Discharge Instructions:
Sleep Apnea Risk Intermediate
Discharge Diagnosis/Procedures NSTEMI, Angioplasty with stent to obtuse
marginal artery
Diet Low Cholesterol,2 Gram Sodium
Activity No strenuous activity
Additional Activity no heavy lifting greater than 10 pounds for 1
week!
Driving Restrictions No driving for 24 hours
Bathing Restrictions None
Other Services Cardiac Rehab
Instructions:
Stand-Alone Forms: DC Instructions- Cath/EP Lab
Changes to Home Medications: No
Discharge Medications:
DC Medications w/original date entered in [facility]
cloknlvd-jrg-oleok acid 0.4 mg-lycopene 300 mcg-lutein 250 mcg tablet (Centrum Silver) 1 ea PO DAILY Supplement 06/26/15
atorvastatin 40 mg tablet 40 mg PO QPM High Cholesterol 12/06/18
lisinopril 20 mg tablet 20 mg PO BID ##60 12/10/18
amlodipine 2.5 mg tablet 2.5 mg PO DAILY Blood Pressure 02/14/24
aspirin 81 mg tablet,delayed release 81 mg PO DAILY #60 tabs 02/16/24
metoprolol succinate 25 mg tablet,extended release 24 hr 25 mg PO DAILY #30 tabs 02/16/24
pantoprazole 40 mg tablet,delayed release 40 mg PO DAILY #30 tabs 02/16/24
ticagrelor 90 mg tablet (Brilinta) 90 mg PO BID #60 tabs 02/16/24
Home Medication Changes
Pending Results: No
[2024-02-16] MEDS: PROTONIX 40 MG PO (10:43)
[2024-02-16 11:12] VITALS: BP 121/62
--- NOTE | 2024-02-16 11:36 | PTCARENOTE ---
Pt AOx3, no complaints of pain or discomfort. VSS, NSR on monitor. Independent with care. Call ley within reach.
--- NOTE | 2024-02-16 13:42 | W.PN.UPDATE ---
Update Note
Progress Note Update
spoke briefly with patient this afternoon. she happily told me she is leaving. she is feeling better. more hopeful about her life. she says she will seek out support in the from of therapy or psych meds if she feels she needs it. she is eagerly
awaiting the arrvial of her son to take her home
== END 2024-02-16 14:50 | disposition home or self-care (01) | DRG 322 ==
LOC: IVU 15:30
PROVIDERS: Internal Medicine Interventional Cardiology; Nurse Practitioner Adult Health; Physician Assistant; Physician Assistant Medical; ADMITTING PHYSICIAN Student in an Organized Health Care Education/Training Program; ATTENDING PHYSICIAN Hospitalist; CONSULT PHYSICIAN Internal Medicine Cardiovascular Disease; CONSULT PHYSICIAN Psychiatry & Neurology Psychiatry; EMERGENCY PHYSICIAN Student in an Organized Health Care Education/Training Program; FAMILY PHYSICIAN Family Medicine
PROC: 027034Z Dilation of Coronary Artery, One Artery with Drug-eluting Intraluminal Device, Percutaneous Approach (ICD-10-PCS; 2024-02-14)
PROC: B2111ZZ Fluoroscopy of Multiple Coronary Arteries using Low Osmolar Contrast (ICD-10-PCS; 2024-02-14)
PROC: 4A023N7 Measurement of Cardiac Sampling and Pressure, Left Heart, Percutaneous Approach (ICD-10-PCS; 2024-02-14)
PROC: B2151ZZ Fluoroscopy of Left Heart using Low Osmolar Contrast (ICD-10-PCS; 2024-02-14)
DX: I21.4 Non-ST elevation (NSTEMI) myocardial infarction (principal); K50.90 Crohn's disease, unspecified, without complications; I25.10 Atherosclerotic heart disease of native coronary artery without angina pectoris; E78.00 Pure hypercholesterolemia, unspecified; I10 Essential (primary) hypertension; E11.9 Type 2 diabetes mellitus without complications; E66.09 Other obesity due to excess calories; Z68.37 Body mass index [BMI] 37.0-37.9, adult; Z86.73 Personal history of transient ischemic attack (TIA), and cerebral infarction without residual deficits; Z87.891 Personal history of nicotine dependence; Z79.02 Long term (current) use of antithrombotics/antiplatelets
CPT/HCPCS: 93308; 71046; 80048; 80053; 80061; 82962; 83735; 84132; 84484; 85025; 85027; 85347; 93005; 93306; 93321; 93325; 93458; 99285; C1725; C1874; C1887; C1894; C9600; Q9967

== ENCOUNTER 2024-02-24 23:21 | Inpatient (IN) | payer OTHER, SELFPAY ==
[2024-02-24] VITALS (8 sets, daily range): BP systolic 164–189; BP diastolic 75–92; BMI 37.5
--- NOTE | 2024-02-24 19:24 | ED.GENMED ---
History of Present Illness
General
Chief Complaint: Chest Pain
Source: patient and ambulance crew
Exam Limitations: none
Time Seen by Provider: 02/24/24 19:23
Nursing documentation reviewed up to this point in time: agreed with
Travel History
Have you had any contact with someone who has COVID-19?: No
Do you have any symptoms of coronavirus? Fever > 100 degrees, chills, cough, shortness of breath, sore throat, loss of taste or smell, muscle aches, or headache?: No
Symptoms:: chest pain, shortness of breath
History of Present Illness
History of Present Illness:
78 yo female presents to the emergency department complaining of chest pain since noon. She had recent cardiac catheterization on 02/14/2024. EMS gave her aspirin 324 prior to arrival. Her pain is worse at rest, unchanged with activity. It feels
similar to her recent [place].
Past History
Past History
ED Past Medical History: CAD, CVA (Only Left thumb residual), HTN, Hypercholesterolemia, [place] and Other (Fibroid, Crohn's)
ED Past Surgical History: Cardiac (Stent, Angioplasty)
Social History
Tobacco: Former smoker
Alcohol: None
Drug: None
Personal:
Living: with family
Employment: Employed (Part-time employed)
Family History
Family History: Other (Noncontributory)
Review of Systems
Review of Systems
Allergies reviewed?: Yes
All Other Systems: Not applicable
Constitutional: Reports no symptoms
EENT: Reports no symptoms
Respiratory: Reports no symptoms
Cardiac: Reports chest pain
ABD/GI: Reports no symptoms
: Reports no symptoms
Musculoskeletal: Reports no symptoms
Skin: Reports no symptoms
Neurological: Reports no symptoms
Endocrine: Reports no symptoms
Hematologic/Lymphatic: Reports no symptoms
Psychiatric: Reports no symptoms
Phy Exam
Physical Exam
Physical Exam:
Physical Exam
General: no apparent distress, not acutely ill
Neck: supple. no meningeal signs. normal posterior pharynx
Heart: s1/s2 regular rate and rhythm, no murmur. equal radial
pulses.
HEENT: Pupils equal round reactive to light, EOMI
Lungs: no acute respiratory distress. clear bilaterally
Abdomen: normal bowel sounds. not tender. no CVAT
Neuro: alert and oriented. no focal neurological deficits cranial nerves II through XII intact
Skin: no rash
Psychiatric: well kept. interactive and cooperative
Extremities: no edema. no calf tenderness. negative homans. good distal pulses
Scores
Heart Score for Chest Pain Patients
STEMI patient?: No
History: Moderately Suspicious
ECG: Normal
Age: >/= 65 years
Risk Factors: >/= 3 Risk Factors or History of CAD
Troponin: </= Normal Limit
Heart Score for Chest Pain Patients: 5
Heart Score Risk: 20.3% MACE over next 6 weeks
Course
Orders/Labs/Results
Orders:
Orders
02/24/24 19:19
ECG [Electrocardiogram (*1)] Urgent
Reason for Study: Chest Pain
EKG- Treatment ONCE
02/24/24 19:20
Cardiac Monitoring- Treatment ONCE
IV Insert/Care/Rem.- Treatment PRN
CR Chest - 2 Views Urgent
Comment:
Reason For Exam: respiratory distress
O2 Therapy [RESP] Urgent
Titrate/Wean O2 to maintain O2 sat greater than (%): 93
Special Instructions: TO MAINTAIN CONTINUOUS O2 SATS >/= 93%
Pulse Ox/cont/shift [RESP] Urgent
Quantity: 1
Special Instructions: continuous pulse ox
02/24/24 19:41
Complete Blood Count/With Diff Urgent
02/24/24 20:39
NT-proBNP Routine
Troponin I Routine
02/24/24 21:05
Protime/PTT Urgent
02/24/24 21:24
Basic Metabolic Panel Urgent
02/24/24 21:25
Troponin I Urgent
02/24/24 22:00
Flush (0.9% Sodium Chloride) [Flush (Nss)] See Dose Instructions IV PER PROTOCOL
02/24/24 22:32
Morphine Sulfate 2 mg IV NOW STA
Ondansetron Injectable [Zofran] 4 mg IV NOW STA
02/24/24 22:36
Potassium Urgent
02/24/24 22:48
ECG [Electrocardiogram (*1)] Urgent
Reason for Study: Chest Pain
EKG- Treatment ONCE
02/24/24 22:59
Admit/Transfer Patient As Directed
Co-Sign Provider:
Level of Care: Inpatient admission
Assign to:: Telemetry
Physician / Group: Hospitalist
Diagnosis: Chest pain
Reason for Telemetry: Chest Pain syndromes
Date to Stop Telemetry: 02/26/24
Time to Stop Telemetry: 11:00
Reason for Hospitalization: Chest pain
Expected length of stay greater than two midnights?: Yes
ELOS- Estimated Length of Stay in days: 3
I certify the patient meets the requirements for IP care: Yes
02/24/24 23:01
Code Status As Directed
Resuscitation Status: Full Code
02/24/24 23:13
Midline IV As Directed
02/25/24 00:57
Electrocardiogram (*1) Q6H
Reason for Study: Chest Pain
Comment: at admission and Q3H for total of 3, to be done with each troponin
Acetaminophen [Tylenol] 650 mg PO Q4HPRN PRN
Mag Hydrox/Al Hydrox/Simeth [Maalox] 30 ml PO Q4HPRN PRN
Morphine Sulfate 2 mg IV Q4HPRN PRN
02/25/24 00:57
CARDIOLOGY CONSULT Routine
Consulting Provider: Jose Maria Rodriguez
Was physician already notified: No
Reason for consult: Chest pain, recent stent.
Consult Notification Routine
Specialty to Notify: Cardiology
Activity As Directed
Activity Level: With Assistance
INT (Intravenous Needle Therapy) As Directed
Comment: maintain peripheral IV access
Intake/ Output As Directed
Frequency: Per unit guidelines
Pneumatic Compression Sleeves As Directed
Type: Knee high
Vital Signs As Directed
Frequency: q4h
Weight As Directed
Frequency: Daily
O2 Therapy [RESP] Routine
Nasal Cannula Liter Flow: 2 LPM
Titrate/Wean O2 to maintain O2 sat greater than (%): 90
Special Instructions: 2 liters/minute as needed for pulse oximetry less than 90%
Pulse Ox/spot Check [RESP] Routine
Quantity: 1
Special Instructions: on admission and then every shift if on oxygen
DX Deep Vein Thrombosis Video Routine
02/25/24 01:36
Glycohemoglobin (HgbA1c) Routine
Troponin I Q3H
Comment: at admit & Q3H for 3 total including ED draws, obtain ECG with each level
02/25/24 03:57
Troponin I Q3H
Comment: at admit & Q3H for 3 total including ED draws, obtain ECG with each level
02/25/24 Breakfast
Cholesterol Lowering
Cholesterol Lowering: Sodium, 2 Gram
Basic Metabolic Panel IN AM
Complete Blood Count/No Diff IN AM
02/25/24 06:57
Electrocardiogram (*1) Q6H
Reason for Study: Chest Pain
Comment: at admission and Q3H for total of 3, to be done with each troponin
Troponin I Q3H
Comment: at admit & Q3H for 3 total including ED draws, obtain ECG with each level
02/25/24 08:00
Amlodipine [Norvasc] 2.5 mg PO DAILY
Aspirin Low Dose EC [Aspir Low (Enteric Coated)] 81 mg PO DAILY
Lisinopril [Zestril] 20 mg PO BID
Metoprolol Xl [Toprol Xl] 25 mg PO DAILY
Multivitamin [Theragran] 1 tablet PO DAILY
Pantoprazole [Protonix] 40 mg PO DAILY
Ticagrelor [Brilinta] 90 mg PO BID
02/25/24 12:57
Electrocardiogram (*1) Q6H
Reason for Study: Chest Pain
Comment: at admission and Q3H for total of 3, to be done with each troponin
02/25/24 18:00
Atorvastatin [Lipitor] 40 mg PO QPM
02/26/24 11:00
DC Protocol for Telemetry ONCE
Abnormal Lab Results
02/24/24 02/24/24
19:41 21:24
MCH 31.1 H pg
(27.0-31.0)
Sodium 131 L mmol/L
(135-145)
Glucose 122 H mg/dl
(70-99)
Calcium 10.6 H mg/dl
(8.4-10.2)
02/24/24 19:41
02/24/24 22:36
Vital Signs
Initial and Last Documented VS:
Initial Vital Signs
Temp Pulse Resp
98.2 F 77 18
02/24/24 19:14 02/24/24 19:14 02/24/24 19:14
Last Documented Vital Signs
Temp Pulse Resp BP Pulse Ox
97.9 F 63 20 179/91 96
02/25/24 01:20 02/25/24 01:20 02/25/24 01:20 02/25/24 01:20 02/25/24 01:20
MDM/Problems Addressed
Differential Diagnosis Includes:
ACS, CHF
MDM/Problems Addressed:
78-year-old female with chest pain, possibly unstable angina. Patient declining nitroglycerin, and eventually excepting morphine. It helped a little bit. Initial troponin negative. Admit to hospitalist. Discussed with Dr. Aaron.
Chronic conditions affecting care: CAD
Acute Exacerbation and/or Progression of Chronic Illness: CAD
*Radiology
Radiology exam reviewed: preliminary read by ED provider (Chest x-ray no acute findings)
*Pulse Oximetry
Patient hypoxic: no
*EKG
Interpreted by ED Provider?: Yes
EKG Intrepretation Date: 02/24/24
EKG Intrepretation Time: 19:20
Interpretation: abnormal
Comparison EKG: no changes
Heart Rate: 75
Rate: normal
Rhythm: sinus
[place]: normal axis
Interval: normal interval
QRS Pattern: left vent hypertrophy
Ischemia: no ischemia
*Artificial Limb Fitter Interpretation
Rate: normal
Interpretation: normal
Heart Rate: 74
Rhythm: sinus
*Critical Care Note
Total Time (30-74mins, 75-104mins- exclusive of procedures): Not Applicable
Data Reviewed
Review of Other/Old Records Reveals: Operative Reports (Recent cardiac catheterization with stent to OM1)
Source: records
Further Testing Considered But Not Given:
CT chest not indicated
Patient Management
Social determinants of health affecting care: Living situation
Discussion with other providers: Hospitalist and Rigging Up Man (Cardiology Dr. Aaron)
Escalation/DeEscalation of care consider admission/obs:
Admit indicated
ED Attending Note
-
Portions of this chart may have been created with voice recognition software.� Occasional wrong word or��sound alike� substitutions may have occurred due to the inherent limitations of voice recognition software.
Discharge Plan
Departure
Patient Disposition: Admit
Date of Disposition: 02/24/24
Time of Disposition: 21:30
Admit to: IVU
Presentation/result/management discussed w/ accepting MD/DO: Hospitalist
Patient with high blood pressure during this ER visit?: Yes
Condition: Good
Discharge Problem:
Chest pain
Interventions
Interventions:
*Risk Screen - Suicide Last Done: 02/24/24 19:14
*General Assessment Last Done: 02/24/24 19:14
*Neglect/Abuse Screening Last Done: 02/24/24 19:14
ED- Fall Risk Assessment Last Done: 02/24/24 19:14
*ED COVID-19 Vaccine History Last Done: 02/24/24 19:14
*Nursing Disposition Last Done: 02/25/24 00:48
ED- Cardiac Assessment Last Done: 02/24/24 19:50
Discharge Date and Time
Discharge Date/Time: 02/25/24 00:48
[2024-02-24 20:09] LABS: % Eosinophils 3.5 % (0-6); % Immature Granulocytes 0.2 % (0-0.5); % Lymphocytes 29.3 % (20.5-51.1); Absolute Basophils 0.1 10^3/uL (0-0.2); Absolute Eosinophils 0.2 10^3/uL (0-0.7); Absolute Lymphocytes 1.8 10^3/uL (1.2-3.4); Absolute Monocytes 0.4 10^3/uL (0.1-0.6); Absolute Neutrophils 3.5 10^3/uL (1.4-6.5); Hematocrit 38.1 % (37.0-47.0); Hemoglobin 13.3 g/dL (12.0-16.0); Mean Corp Hgb Conc. 34.9 g/dL (33.0-37.0); Mean Corpuscular Hgb 31.1 pg (27.0-31.0); Mean Corpuscular Volume 89.2 fL (81.0-99.0); Mean Platelet Volume 10.4 fL (7.4-10.4); Nucleated Red Blood Cells % 0 %; Platelet Count 301 10^3/uL (130-400); Red Blood Cell Count 4.27 10^6/uL (4.20-5.40); Red Cell Dist. Width 13.8 % (11.5-14.5)
[2024-02-24 21:13] LABS: NT-proBNP 367 pg/ml; Troponin I < 0.012 ng/ml
[2024-02-24 21:22] LABS: PT 11.9 Sec (11.4-14.6)
[2024-02-24 21:23] LABS: APTT 29.8 Sec (23.4-35.0)
--- NOTE | 2024-02-24 21:31 | EDRN ---
Addendum entered by Dai Lamar RN 02/24/24 21:35:
During each blood draw, chemistry was sent. Chemistry has hemolyzed twice, third specimen sent.
Original Note:
Pt. difficult IV stick. IV team initially paged to bedside, able to place 24 G in lt. hand;however, no blood return. Flushes without difficulty. This RN had initially placed 20g in rt. arm via ultrasound, initially gave back great blood return and
flushed without pain; however, after return from xray, IV no longer flushes, pt. w/ hematoma to site, ice pack applied and IV removed. RN attempted ultrasound guided in lt. upper arm, able to draw blood from IV, but again, could not flush. aware.
Pt. does have [address] in lt. hand.
--- NOTE | 2024-02-24 21:34 | EDRN ---
Pt. continues -07/[address] Cummins at bedside, offered pt. morphine for pain but pt. refusing, pt. states, 'I don't want anything for pain, I want to feel it so I know what's going on'.
[2024-02-24 22:02] LABS: Blood Urea Nitrogen 8 mg/dl (7-17); Calcium 10.6 mg/dl (8.4-10.2); Carbon Dioxide 22 mmol/L (22-30); Chloride 105 mmol/L (98-107); Estimated Creatinine Clearance 75 ml/min; Glucose 122 mg/dl (70-99); Sodium 131 mmol/L (135-145); eGFR > 60.00
[2024-02-24 22:09] LABS: Troponin I 0.016 ng/ml
--- NOTE | 2024-02-24 22:20 | EDRN ---
Third SST lab hemolyzed. Phlebotomy paged for potassium level as lab was able to run BMP, but not CMP.
[2024-02-24] MEDS: ZOFRAN 4 MG IV (22:40)
[2024-02-24] MEDS: MORPHINE SULFATE 2 MG IV (22:40)
--- NOTE | 2024-02-24 22:43 | HPS.HSE ---
Family Physician
-
Family Physician: Corey Atkinson
Chief Complaint
-
Chest pain
History of Present Illness
78 yo woman comes to the emergency department complaining of chest pain since noon. She had recent cardiac catheterization on 02/14/2024. EMS gave her aspirin 324 prior to arrival. Her pain is worse at rest, unchanged with activity. It feels
similar to her recent [place]. She initially refused nitroglycerin and morphine despite having ongoing chest pain. Her BP was elevated. This is the summary of her recent visit to :
'PROCEDURES: Cardiac catheterization.
DISCHARGE DIAGNOSES:
1. Non ST elevation myocardial infarction.
2. Coronary artery disease.
3. Hyperlipidemia.
4. History of stroke.
5. Essential hypertension.
HOSPITAL COURSE: The patient is a 78-year-old female who presented
to the emergency room with chest pain after she was informed that
her son just committed suicide and . She was admitted for
further evaluation.
She was diagnosed with a non ST elevation myocardial infarction.
She underwent cardiac catheterization on February 13 with successful
stenting of the proximal OM1 stenosis. Post procedure, she had mild
chest discomfort that was managed medically. Echocardiogram
demonstrated LVEF 45-50% with hypokinesis of the inferior septum,
basal inferior and basal inferior lateral weston. Mild MR and mild
AR were noted.
Cardiology recommended medical management with uninterrupted
dual-antiplatelet therapy as well as beta blockade and statin
therapy. She was otherwise stable for discharge home with
outpatient follow up recommended. Psychiatry did assess the patient
given her grief and loss, and recommend outpatient therapy.'
Medical History
Past Medical History
Past Medical History: Reports Other
Additional Past Medical History:
CAD,
CVA (Only Left thumb residual deficit),
essential HTN,
Hypercholesterolemia,
NSTEMI
Fibroid,
Crohn's
recent Stent,
recent Angioplasty
Past Surgical History: Reports Other
Additional Past Surgical History:
See above
Social History
Tobacco: Non-smoker
Alcohol: None
Family History
Family History: Not pertinent
Allergies / Home Medications
Allergies reflects when Allergies were last updated in [facility].
Home Medications with original date entered in [facility]
Allergy/Medication List:
Allergies
Allergy/AdvReac Type Severity Reaction Status Date / Time
levofloxacin Allergy muscle Verified 02/24/24 19:14
cramps
prednisone Allergy Rash Verified 02/24/24 19:14
shellfish derived Allergy severe Verified 02/24/24 19:14
vomiting
Home Medications
pmllyfbd-vdx-wquuw acid 0.4 mg-lycopene 300 mcg-lutein 250 mcg tablet (Centrum Silver) 1 ea PO DAILY Supplement 06/26/15
atorvastatin 40 mg tablet 40 mg PO QPM High Cholesterol 12/06/18
lisinopril 20 mg tablet 20 mg PO BID ##60 12/10/18
amlodipine 2.5 mg tablet 2.5 mg PO DAILY Blood Pressure 02/14/24
aspirin 81 mg tablet,delayed release 81 mg PO DAILY #60 tabs 02/16/24
metoprolol succinate 25 mg tablet,extended release 24 hr 25 mg PO DAILY #30 tabs 02/16/24
pantoprazole 40 mg tablet,delayed release 40 mg PO DAILY #30 tabs 02/16/24
ticagrelor 90 mg tablet (Brilinta) 90 mg PO BID #60 tabs 02/16/24
Review of Systems
-
History Source: Patient
A 12 point ROS was completed and negative except as noted: Yes
Cardiac: Reports Chest Pain
Physical Exam
Vital Signs
Vital Signs
Temp Pulse Resp BP Pulse Ox
98.2 F 67 15 167/75 96
02/24/24 19:14 02/24/24 22:30 02/24/24 22:30 02/24/24 22:00 02/24/24 22:30
Physical Exam
General: Well Developed, Well Nourished, Appears in Distress and Obese
HEENT: NormoCephalic, Nose Appears Normal and Ears Appear Normal
Respiratory: Clear
Cardiac: S1/S2 and Regular Rhythm
GI: Soft, Non Tender and Non Distended
Musculoskeletal: No Clubbing, No Cyanosis and No Edema
Skin: Warm and Dry; No Rash or Jaundice
Neuro: Awake, Alert, Oriented and AO x 3
Psych: Anxious
Laboratory Results
-
02/24/24 19:41
Laboratory Results
PT 11.9 Sec (11.4-14.6) 02/24/24 21:05
INR 0.90 02/24/24 21:05
APTT 29.8 Sec (23.4-35.0) 02/24/24 21:05
Total Bilirubin Cancelled 02/24/24 21:24
AST Cancelled 02/24/24 21:24
ALT Cancelled 02/24/24 21:24
Alkaline Phosphatase Cancelled 02/24/24 21:24
Troponin I 0.016 ng/ml D 02/24/24 21:25
Data Reviewed
-
Lab Data: Labs Reviewed by me
Impression/Plan
-
IMPRESSION:
78 woman with chest pain. Recent stent. ECG normal.
PLAN:
1. Chest pain. Concerning for cardiac cause given recent [place] and stent. Cardiology note from last admit states:
'Patient presented with an NSTEMI with troponins still slowly uptrending from unclear cause. ECG is without acute ischemic changes. Echocardiogram appears unchanged. I reviewed her heart catheterization from yesterday again with an excellent
result of OM1 PCI and JG-3 flow. For now no plans to relook with an invasive heart catheterization however we will continue to work on uptitrating goal-directed medical therapy including antianginal medications as hemodynamically will allow.
Given mild LV dysfunction, will have telephonic nurse case manager look into the cost for possible SGLT2 inhibitors prior to discharge. Dual antiplatelet therapy with daily baby aspirin and ticagrelor along with statin and beta-more.'
Will continue current prescribed meds
Telemetry
Repeat troponins
Cardiology consult for am
2. HTN - BPs elevated in setting of pain. Patient agreed to nitro and morphine.
Use as needed for pain, and keep close eye on BP. BP should go down if pain is reduced.
Full code
VCD for DVTp
[2024-02-24 22:50] LABS: Potassium 4.4 mmol/L (3.5-5.1)
[2024-02-25] VITALS (10 sets, daily range): BP systolic 129–179; BP diastolic 55–91; BMI 37.5; BMI 36.6; BMI 36.1
[2024-02-25 02:17] LABS: Troponin I 0.017 ng/ml
--- NOTE | 2024-02-25 03:41 | PTCARENOTE ---
Pt arrived onto floor @0120. Pt AAOx3 and able to walk into room with minimal assistance. Pt has elevated BP, which is likely related to pain. Pt states that she does not need any pain medictaion at this time. Pt oriented to room and call jil,
will continue to monitor.
[2024-02-25 05:09] LABS: Hematocrit 35.8 % (37.0-47.0); Hemoglobin 12.2 g/dL (12.0-16.0); Mean Corp Hgb Conc. 34.1 g/dL (33.0-37.0); Mean Corpuscular Hgb 31.1 pg (27.0-31.0); Mean Corpuscular Volume 91.3 fL (81.0-99.0); Mean Platelet Volume 10.6 fL (7.4-10.4); Platelet Count 263 10^3/uL (130-400); Red Blood Cell Count 3.92 10^6/uL (4.20-5.40); Red Cell Dist. Width 13.8 % (11.5-14.5); White Blood Cell Count 6.5 10^3/uL (4.8-10.8)
[2024-02-25 05:33] LABS: Blood Urea Nitrogen 6 mg/dl (7-17); Calcium 10.3 mg/dl (8.4-10.2); Carbon Dioxide 24 mmol/L (22-30); Chloride 108 mmol/L (98-107); Estimated Creatinine Clearance 74 ml/min; Glucose 101 mg/dl (70-99); Potassium 4.4 mmol/L (3.5-5.1); Sodium 135 mmol/L (135-145); eGFR > 60.00
[2024-02-25 05:44] LABS: Troponin I 0.014 ng/ml
[2024-02-25] MEDS: PROTONIX 40 MG PO (08:56)
[2024-02-25] MEDS: ZESTRIL 20 MG PO ×2 (08:56→20:00)
[2024-02-25] MEDS: TOPROL XL 25 MG PO (08:57)
[2024-02-25] MEDS: NORVASC 2.5 MG PO (08:57)
[2024-02-25] MEDS: ASPIR LOW (ENTERIC COATED) 81 MG PO (08:58)
[2024-02-25] MEDS: THERAGRAN 1 TABLET PO (08:58)
[2024-02-25] MEDS: BRILINTA 90 MG PO ×2 (08:58→20:00)
--- NOTE | 2024-02-25 09:26 | W.PN.HOSP.TC ---
Today's Communication/Plan
-
await cards c/s
Assessment / Plan
Assessment / Plan
HPI: 78 yo woman comes to the emergency department complaining of chest pain since noon. She had recent cardiac catheterization on 02/14/2024. EMS gave her aspirin 324 prior to arrival. Her pain is worse at rest, unchanged with activity. It feels
similar to her recent CT. She initially refused nitroglycerin and morphine despite having ongoing chest pain. Her BP was elevated.
#Chest pain
#Coronary artery disease
#Recent non-ST elevation myocardial infarction status post stent placement 02/14/2024
Troponins flat, cardiology consult pending
Continue aspirin, Brilinta, statin
#Benign essential hypertension
Continue lisinopril 20 mg twice a day, metoprolol succinate 25 mg daily, amlodipine 2.5 mg daily
#GERD
Continue PPI
#Hyperlipidemia
Continue statin
#Stroke
Continue aspirin, statin
#Morbid obesity due to excess calories
Proximal aspect
DVT prophylaxis�subcu Lovenox
Full code
Total time spent to see the patient on the floor, examine the patient, review data and lab results, discuss treatment plan with patient, nursing staff around 35 minutes.
Physical Exam
General: Obese, no acute distress
HEENT: Normocephalic, Atraumatic, EOMI, MMM
Respiratory: Clear to Auscultation bilaterally
Cardiac: Normal S1/S2, Regular Rate and Rhythm
Chest wall: Nontender to palpation
GI: Soft, Nontender, Nondistended, Normal Bowel Sounds
Extremities: No Clubbing, Cyanosis, or Edema
Neuro: Nonfocal/Grossly Intact
Psych: Calm, Cooperative
Derm: No Visible lesions
Anticipated Discharge: 24 - 48 hours
Subjective/Interval History
-
Date of Service: February 25, 2024
Patient reports chest pressure, substernal, 7 out of 10 in intensity, radiating to both the left and the right side.
Objective Data
-
Labs:
Laboratory Results
02/24/24 02/24/24 02/24/24
21:05 21:24 22:36
WBC
Hgb
Hct
Plt Count
PT 11.9
INR 0.90
APTT 29.8
Sodium 131 L
Potassium 4.4
Chloride 105
Carbon Dioxide 22
BUN 8
Creatinine 0.7
Glucose 122 H
Calcium 10.6 H
Total Bilirubin Cancelled
AST Cancelled
ALT Cancelled
Alkaline Phosphatase Cancelled
02/25/24
04:44
WBC 6.5
Hgb 12.2
Hct 35.8 L
Plt Count 263
PT
INR
APTT
Sodium 135
Potassium 4.4
Chloride 108 H
Carbon Dioxide 24
BUN 6 L
Creatinine 0.7
Glucose 101 H
Calcium 10.3 H
Total Bilirubin
AST
ALT
Alkaline Phosphatase
Vital Signs:
Vital Signs
Temp Pulse Resp BP Pulse Ox
97.6 F 78 18 133/76 98
02/25/24 03:10 02/25/24 08:56 02/25/24 03:10 02/25/24 08:56 02/25/24 03:10
[2024-02-25 11:17] LABS: Glycohemoglobin (HgbA1c) 6.3 % (4.0-5.6)
--- NOTE | 2024-02-25 17:16 | CON.CAR ---
Consultation
Consultation Request
Date/Time Consultation Requested: 02/24/2024 2130
Date/Time Consultation Performed: 02/25/2024 1100
Requesting Provider: Solo Cummins DO
Performing Provider: Corey Pantoja Do
Reason for Consultation: Chest pain
Medical History
-
Chief Complaint: Chest pain
History of Present Illness:
Patient is a pleasant 78-year-old female with a past medical history significant for hypertension, hyperlipidemia, moderate restrictive lung disease, diabetes mellitus type 2, fatty liver disease, former smoker, family history of CAD, CVA 2002, CAD
status post PCI 2002, 2005, 02/14/2024 who presents to the emergency department due to recurrent chest pain. Patient reported on and off chest discomfort over the last week since discharge. She notes when she is active she experiences some
lightheaded and dizziness and when she stops being active, she experiences a tightness in her chest similar to the tightness that brought her to the hospital. Due to this discomfort not improving, she proceeded emergency department for further
evaluation. Troponins negative x 4. EKG sinus rhythm without ST-T abnormality. Chest x-ray negative for acute cardiopulmonary process.In discussion with patient, she has reported that her blood pressure has been elevated which may have
contributed to her symptoms. Initially the emergency department, she was offered nitroglycerin morphine, and refused them due to concern for hypotension however patient received these with some change in her discomfort. Since her blood pressure
has improved, she is noted improvement in discomfort. Currently, patient denies any chest pain, shortness of breath, lightheadedness, dizziness, near-syncope, syncope, PND orthopnea, edema, or weakness. Of note, patient has not started cardiac
rehab therapy at this time. Patient wishes to initiate this following return from her family members graduation in March. Patient reports adherence to medications.
Past Medical History
Past Medical History: None (Per HPI)
Past Surgical History: Other (Per HPI)
Social History
Tobacco: Former Smoker
Alcohol: None
Drug: None
Living: Alone
Employment: Retired
Family History
Family History: CAD
Allergies / Home Medications
Allergy/AdvReac Type Severity Reaction Status Date / Time
levofloxacin Allergy muscle Verified 02/24/24 19:14
cramps
prednisone Allergy Rash Verified 02/24/24 19:14
shellfish derived Allergy severe Verified 02/24/24 19:14
vomiting
�Medication �Instructions �Recorded �Confirmed �Type
ldxsdcjr-xvb-vkqoh acid 0.4 1 ea PO DAILY Supplement 06/26/15 02/25/24 History
mg-lycopene 300 mcg-lutein 250 mcg
tablet (Centrum Silver)
atorvastatin 40 mg tablet 40 mg PO QPM High Cholesterol 12/06/18 02/25/24 History
lisinopril 20 mg tablet 20 mg PO BID ##60 12/10/18 02/25/24 Rx
amlodipine 2.5 mg tablet 2.5 mg PO DAILY Blood Pressure 02/14/24 02/25/24 History
aspirin 81 mg tablet,delayed 81 mg PO DAILY #60 tabs 02/16/24 02/25/24 Rx
release
metoprolol succinate 25 mg 25 mg PO DAILY #30 tabs 02/16/24 02/25/24 Rx
tablet,extended release 24 hr
pantoprazole 40 mg tablet,delayed 40 mg PO DAILY #30 tabs 02/16/24 02/25/24 Rx
release
ticagrelor 90 mg tablet (Brilinta) 90 mg PO BID #60 tabs 02/16/24 02/25/24 Rx
Review of Systems
-
History Source: Patient
Constitutional: No Symptoms
EENT: No Symptoms
Respiratory: No Symptoms
Cardiac: Chest Pain
Abdomen/GI: No Symptoms
: No Symptoms
Musculoskeletal: No Symptoms
Skin: No Symptoms
Neurological: Dizzy
Endocrine: No Symptoms
Hematologic/Lymphatic: No Symptoms
Physical Exam
Vital Signs
Temp Pulse Resp BP Pulse Ox
97.9 F 66 16 136/65 95
02/25/24 11:27 02/25/24 11:27 02/25/24 11:27 02/25/24 11:27 02/25/24 11:27
Lab Results
02/25/24 04:44
02/25/24 04:44
Troponin I Cancelled 02/25/24 06:57
Atn-H-Ekrpjvlgmbr Pept 367 pg/ml 02/24/24 20:39
Physical Exam
General: Well Developed, Well Nourished, No Apparent Distress, Comfortable and Other (Obese)
HEENT: Normocephalic, Anicteric and Moist Mucous Membranes
Respiratory: Clear, Non Labored Respirations and Other (No wheeze, rhonchi, rales)
Cardiac: S1/S2, Regular Rhythm and Other (No murmur, rub, gallop)
GI: Soft, Non Tender, Non Distended and Normal Bowel Sounds
Rectal: Deferred by Provider
Musculoskeletal: No Clubbing, No Cyanosis and No Edema
Skin: Warm and Dry
Neuro: Awake, Alert and Oriented
Psych: Calm
Impression / Plan
-
Primary Casket Liner: Dr. Rodriguez
Assessment:
Presentation with CP; troponin negative; mildly hypertensive
CAD status post RCA PCI 2002, PTCA of ostial RPDA in 2005, PCI OM1 02/14/2024
NSTEMI s/p PCI as above 02/14/2024
History of stroke in 2002
Crohn's disease
Hypertension
Hyperlipidemia
Moderate restrictive lung disease
Diabetes type 2, diet controlled
History of fatty liver
Former smoker
FH of CAD
ECHO 12/06/2018: EF 50 to 55%, mild concentric LVH, mild AR
Lexiscan nuclear stress test 09/06/2022: Small area of decreased perfusion that is fixed in basal inferolateral, basal inferior, mid inferolateral, mid inferior segments consistent with soft tissue attenuation, EF 63%, no significant change compared
to 2020
ECHO 02/14/24: EF 45 to 50%, basal septum, basal inferoseptum, basal inferior, basal lateral weston are hypokinetic, mild LVH, mild MR, mild AR
Plan:
-Recent admission for CP -> NSTEMI -> Patient presented with development of chest pain in the setting of learning her son had . history of prior RCA PCI and PTCA of RPDA; s/p cath 02/13 with OM1 PCI. residual mod CAD in RPDA and first diag
branch, plan for medical mgmt. previously reviewed with patient 02/15 during prior hospital stay
-troponin negative x 4 this admission, CXR negative, no further CP
-continue asa, brilinta, PPI (for GERD in setting of DAPT)
-continue statin. LDL 61.
-On Amlodipine 2.5 mg daily, lisinopril 20 mg twice daily, metoprolol succinate 25 mg daily, mildly hypertensive during admission; increase amlodipine to 5 mg daily, Metoprolol succinate 50 mg daily monitor blood pressure and heart rate response to
medical therapy; can consider additional antianginal therapy for blood pressure and chest pain improvement such as isosorbide mononitrate
-Consider addition of SGLT2 inhibitor and spironolactone as OP
�Recommend cardiac rehab for patient and close outpatient follow-up
Discussed with nursing, hospitalist
Data Reviewed
-
EKG: Tracing Personally Visualized and interpreted
Radiology: Report Reviewed by me
Medical Tests (Nuc Med, Echo etc): Report Reviewed by me
Labs: Labs Reviewed by me
Old Records: Reviewed
[2024-02-25] MEDS: LIPITOR 40 MG PO (17:50)
[2024-02-26 03:48] VITALS: BP 118/60
[2024-02-26 06:00] VITALS: BMI 36.1
[2024-02-26 07:37] VITALS: BP 147/79
[2024-02-26] MEDS: ASPIR LOW (ENTERIC COATED) 81 MG PO (08:40)
[2024-02-26] MEDS: ZESTRIL 20 MG PO (08:40)
[2024-02-26] MEDS: PROTONIX 40 MG PO (08:40)
[2024-02-26] MEDS: THERAGRAN 1 TABLET PO (08:41)
[2024-02-26] MEDS: BRILINTA 90 MG PO (08:42)
[2024-02-26] MEDS: NORVASC 5 MG PO (08:42)
[2024-02-26] MEDS: TOPROL XL 50 MG PO (08:42)
--- NOTE | 2024-02-26 10:36 | W.PN.UPDATE ---
Update Note
Progress Note Update
Chest pain-free since arrival in bed BPs improved noted cardiology changes to amlodipine and metoprolol XL discussed
Troponins remain flat
She has been ambulating
Exam otherwise benign
Will await cardiology input for final discharge plan presumptively for today
--- NOTE | 2024-02-26 11:58 | CM ---
poultry hatchery manager reviewed patient's chart and met with patient and patient lives alone in a one story home with one step to enter, patient is independent with adl's and ambulation, no dme, son lives next door. Patient has a prescription plan and patient
uses [facility] pharmacy.
Plan; Home alone when stable, no needs.
[2024-02-26 12:30] VITALS: BP 161/77
[2024-02-26 12:48] VITALS: BP 117/74
--- NOTE | 2024-02-26 14:12 | W.PN.CARDCBS ---
Addendum entered and electronically signed by Ivan Solorzano MD 02/26/24 14:44:
Patient seen, interviewed and examined by me.
Well-appearing, no acute distress
Regular rate and rhythm with normal S1 and S2, no S3 no S4. There is a grade 1/6 apical holosystolic murmur and no rubs. PMI is normally placed.
Lungs are clear to auscultation bilaterally without wheezes rales or rhonchi.
Abdomen soft nontender nondistended with normoactive bowel sounds
Extremities show trace pretibial edema bilaterally no clubbing or cyanosis.
Neurologic exam is grossly nonfocal.
Agree with advanced practice professionals assessment and plan as noted below.
Blood pressure is improved with intensifying antihypertensive drug therapy. Continue current dose of amlodipine and Toprol-XL which patient is tolerating well.
All of her questions have been answered
No objection to discharge home from a cardiology standpoint
Original Note:
Today's Communication / Plan
-
Cont higher dose amlodipine and Toprol XL
Cardiology f/u arranged
Stable for d/c to home from a CV standpoint
Impression / Plan
-
Primary Claims Administrator: Dr. Rodriguez
Assessment:
Presentation with CP; troponin negative; mildly hypertensive
CAD
status post RCA PCI 2002
PTCA of ostial RPDA in 2005
NSTEMI and PCI OM1 02/14/2024
History of stroke in 2002
Crohn's disease
Hypertension
Hyperlipidemia
Moderate restrictive lung disease
Diabetes type 2, diet controlled
History of fatty liver
Former smoker
FH of CAD
ECHO 12/06/2018: EF 50 to 55%, mild concentric LVH, mild AR
Lexiscan nuclear stress test 09/06/2022: Small area of decreased perfusion that is fixed in basal inferolateral, basal inferior, mid inferolateral, mid inferior segments consistent with soft tissue attenuation, EF 63%, no significant change compared
to 2020
ECHO 02/14/24: EF 45 to 50%, basal septum, basal inferoseptum, basal inferior, basal lateral weston are hypokinetic, mild LVH, mild MR, mild AR
Plan:
-Appreciate PCT repeating patient's BP for me, on recheck BP improved to 117/74. Overall BP improved with higher dose malodipine 5 mg daily and Toprol XL 50 mg daily.
-No recurrence of resting chest pain that patient had Monday.
-Troponin trending down this admission. Patient did not have an CO this admission
-Cont usual doses of aspirin and Brilinta following recent OM-1 PCI
-Outpatient dose of lisinopril 20 mg BID has been continued as well
-Patient can be discharged to home with outpatient cardiology care arranged
Progress Note - Claims Administrator
Subjective
Date of Service: February 26, 2024
No chest pain, she thinks BP was higher after morning meds than before morning meds
Objective
Labs:
02/25/24 04:44
02/25/24 04:44
Labs
Hgb 12.2 g/dL (12.0-16.0) 02/25/24 04:44
Hct 35.8 % (37.0-47.0) L 02/25/24 04:44
Plt Count 263 10^3/uL (130-400) 02/25/24 04:44
PT 11.9 Sec (11.4-14.6) 02/24/24 21:05
INR 0.90 02/24/24 21:05
APTT 29.8 Sec (23.4-35.0) 02/24/24 21:05
Sodium 135 mmol/L (135-145) 02/25/24 04:44
Potassium 4.4 mmol/L (3.5-5.1) 02/25/24 04:44
BUN 6 mg/dl (7-17) L 02/25/24 04:44
Creatinine 0.7 mg/dL (0.6-1.0) 02/25/24 04:44
Glucose 101 mg/dl (70-99) H 02/25/24 04:44
Troponins
02/24/24 02/24/24 02/24/24
19:41 20:39 21:25
Troponin I Cancelled < 0.012 0.016 D
02/25/24 02/25/24 02/25/24
01:36 04:44 06:57
Troponin I 0.017 0.014 Cancelled
Vital Signs and I&O:
Vital Signs
Temp Pulse Resp BP Pulse Ox
97.6 F 65 18 117/74 97
02/26/24 12:14 02/26/24 12:14 02/26/24 12:14 02/26/24 12:48 02/26/24 12:14
Vital Signs
Temp Pulse Resp BP Pulse Ox
97.6 F 65 18 117/74 97
02/26/24 12:14 02/26/24 12:14 02/26/24 12:14 02/26/24 12:48 02/26/24 12:14
Intake & Output
02/24/24 02/25/24 02/26/24 02/27/24
06:59 06:59 06:59 06:59
Intake Total 1275 / 1275
Balance 1275 / 1275
Physical Exam
Physical Exam
GEN: AAOx3
HEENT: EOMI
LUNGS: No audible wheeze
CV: SR on tele
ABD: ND
EXT: No edema B/L LE
NEURO: Gross non-focal
SKIN: No rash
--- NOTE | 2024-02-26 14:27 | W.DS.TRANS ---
DC Summary - Collection Systems Modeler
-
Discharge Instructions:
Sleep Apnea Risk Intermediate
Discharge Diagnosis/Procedures Chest pain
Coronary artery disease status post PCI OM13 February
2023/NSTEMI
Crohn's disease
Diet Low Cholesterol
Activity As tolerated
Driving Restrictions As prior to admission
Other Services Cardiac Rehab
Instructions:
Stand-Alone Forms:
Changes to Home Medications: Yes
Discharge Medications:
DC Medications w/original date entered in [employer]
widooyeh-zvd-ofbrp acid 0.4 mg-lycopene 300 mcg-lutein 250 mcg tablet (Centrum Silver) 1 ea PO DAILY Supplement 06/26/15
atorvastatin 40 mg tablet 40 mg PO QPM High Cholesterol 12/06/18
lisinopril 20 mg tablet 20 mg PO BID ##60 12/10/18
aspirin 81 mg tablet,delayed release 81 mg PO DAILY #60 tabs 02/16/24
pantoprazole 40 mg tablet,delayed release 40 mg PO DAILY #30 tabs 02/16/24
ticagrelor 90 mg tablet (Brilinta) 90 mg PO BID #60 tabs 02/16/24
amlodipine 5 mg tablet 5 mg PO DAILY #30 tabs 02/26/24
metoprolol succinate 50 mg tablet,extended release 24 hr 50 mg PO DAILY #30 tabs 02/26/24
Home Medication Changes
amlodipine 5 mg tablet 5 mg PO DAILY #30 tabs 02/26/24
metoprolol succinate 50 mg tablet,extended release 24 hr 50 mg PO DAILY #30 tabs 02/26/24
Pending Results: No
Total time spent discharging patient (in min): 45
--- NOTE | 2024-02-26 14:29 | W.DCSUMMARY ---
Discharge Summary
Discharge Data
Date of Admission: 02/24/24
Date of Discharge: 02/26/24
-
Pending Results: No
Hospital Course
This is a 78-year-old female with just on 14 Feb 2024 suffered a NSTEMI with a resultant PCI to the obtuse marginal branch and was placed on Brilinta aspirin and statin therapy for presented back on date of admission complaining of chest pain noted
at rest and actually described worse at rest. It did not change with activity and stated that it felt similar to her recent myocardial infarction. She did present with an elevated blood pressure and was admitted to telemetry and cardiology
consulted. Coincident to this and the original presentation of her [place] she had been informed that her son had just committed suicide and .
Serial troponins proved negative for elevation she remained chest pain-free was felt that possibly contributing to her presentation were poorly controlled blood pressure and her amlodipine dosage of 2.5 was increased to 5 mg daily and her Toprol-XL
was increased from 25 to 50 mg a day .
She had documented significant improvement in blood pressure values and no recurrence of resting chest pain since arrival. Cardiology did not feel she had a repeat ischemic event she was continued on aspirin and Brilinta following her PCI he will
continue on outpatient course of lisinopril 20 mg twice a day along with the changes in prescription of her amlodipine and Toprol-XL which were called into her pharmacy. Cardiology has arranged for outpatient follow-up.
Discharge Plan
-
Patient Disposition: Home (Routine Discharge)
Discharge Diagnosis/Procedures: Chest pain
Coronary artery disease status post PCI OM1 February 14, 2024/NSTEMI
Crohn's disease
Condition: Serious
Diet: Low Cholesterol
Activity: As tolerated
Driving Restrictions: As prior to admission
Other Services: Cardiac Rehab
Referrals:
Jose Maria Rodriguez MD [Active] - 03/04/24 11:00 am (You have an appt to see Dr. Rodriguez's nurse practitioner, Estefania, at the [facility] 03/04/24 at 11 AM. Please call [phone] if you need to reschedule.)
Corey Atkinson MD [Family Provider] - in two weeks
Additional Discharge Medication Instructions: -Increase amlodipine (Norvasc) to 5 mg (one 5 mg tablet or two 2.5 mg tablets) once daily
-Increase Toprol XL (metoprolol succinate) to 50 mg (one 50 mg tablet or two 25 mg tablets) once a day
Prescriptions:
New
metoprolol succinate 50 mg Tablet Extended Release 24 Hr
50 mg PO DAILY Qty: 30 0RF
amlodipine 5 mg Tablet
5 mg PO DAILY Qty: 30 0RF
Continued
Centrum Silver 1 EACH tablet
1 ea PO DAILY
atorvastatin 40 MG tablet
40 mg PO QPM
lisinopril 20 MG tablet
20 mg PO BID Qty: 60 0RF
aspirin 81 mg Tablet,Delayed Release (Dr/Ec)
81 mg PO DAILY Qty: 60 0RF
Brilinta 90 mg Tablet
90 mg PO BID Qty: 60 0RF
pantoprazole 40 mg Tablet,Delayed Release (Dr/Ec)
40 mg PO DAILY Qty: 30 0RF
Discontinued
amlodipine 2.5 mg Tablet
2.5 mg PO DAILY
metoprolol succinate 25 mg Tablet Extended Release 24 Hr
25 mg PO DAILY Qty: 30 0RF
Discharge Orders:
Discharge Patient (As Directed); Ordered 02/26/24
Ordered By: Brenton Boykin
Discharge Date and Time
Print Language: ROMANIAN
--- NOTE | 2024-02-26 15:21 | PTCARENOTE ---
Patient verbalized understanding of d/c instructions. IV Team in process of removing right Midline. No c/o pain or discomfort.
--- NOTE | 2024-02-26 15:31 | VATNOTE ---
right midline removed per protocol. 11cm extracted.
== END 2024-02-26 16:23 | disposition home or self-care (01) | DRG 281 ==
LOC: 4 WEST ACU 23:21
PROVIDERS: ADMITTING PHYSICIAN Internal Medicine; ATTENDING PHYSICIAN Internal Medicine; CONSULT PHYSICIAN Internal Medicine Cardiovascular Disease; EMERGENCY PHYSICIAN Emergency Medicine; FAMILY PHYSICIAN Family Medicine
DX: R07.9 Chest pain, unspecified (principal); K50.90 Crohn's disease, unspecified, without complications; I21.4 Non-ST elevation (NSTEMI) myocardial infarction; I25.10 Atherosclerotic heart disease of native coronary artery without angina pectoris; F43.21 Adjustment disorder with depressed mood; E78.5 Hyperlipidemia, unspecified; I10 Essential (primary) hypertension; Z86.73 Personal history of transient ischemic attack (TIA), and cerebral infarction without residual deficits
CPT/HCPCS: 71046; 80048; 83036; 83880; 84132; 84484; 85025; 85027; 85610; 85730; 93005; 94760; 96374; 96375; 99285

== ENCOUNTER → 2024-04-03 13:52 | Outpatient (REF) | payer OTHER, SELFPAY | LOC: RAD 13:52 | PROVIDERS: ATTENDING PHYSICIAN Nurse Practitioner Adult Health; FAMILY PHYSICIAN Family Medicine | DX: M25.551 Pain in right hip (principal) | CPT/HCPCS: 73502 ==

== ENCOUNTER → 2024-12-26 09:03 | Outpatient (REF) | payer OTHER, SELFPAY | LOC: RAD 09:03 | PROVIDERS: ATTENDING PHYSICIAN Internal Medicine Gastroenterology; FAMILY PHYSICIAN Family Medicine | DX: K50.80 Crohn's disease of both small and large intestine without complications (principal) | CPT/HCPCS: 74177; Q9967 ==

== ENCOUNTER → 2025-05-08 15:20 | Outpatient (REF) | payer OTHER, SELFPAY | LOC: HWWDC 15:20 | PROVIDERS: ATTENDING PHYSICIAN Family Medicine | DX: Z12.31 Encounter for screening mammogram for malignant neoplasm of breast (principal) | CPT/HCPCS: 77063; 77067 ==

== ENCOUNTER → 2025-08-21 12:53 | Outpatient (REF) | payer OTHER, SELFPAY | LOC: RAD 12:53 | PROVIDERS: ATTENDING PHYSICIAN Internal Medicine Gastroenterology; FAMILY PHYSICIAN Family Medicine | DX: K50.80 Crohn's disease of both small and large intestine without complications (principal) | CPT/HCPCS: 74018 ==